=== PATIENT | female | born 1935 | race Caucasian/White ===

== ENCOUNTER 2017-07-17 14:09 | Emergency (ER) | payer MEDICARE, BC ==
[2017-07-17 16:52] VITALS: BP 143/75
--- NOTE | 2017-07-17 17:18 | UC ---
Respiratory Complaint HPI - HPI Summary HPI Summary: 82 yo female with 1 1/2 day hx of cough no f/c fatigue no cp or sob no n/v/d being rxed fro bronchitis - History of Current Complaint Chief Complaint: UCRespiratory Stated Complaint: COUGH Hx Obtained From: Patient Onset/Duration: Gradual Onset, Lasting Days Timing: Constant Severity Initially: Moderate Severity Currently: Moderate Pain Intensity: 0 Pain Scale Used: 0-10 Numeric Character: Cough: Nonproductive Aggravating Factors: Nothing Alleviating Factors: Nothing Associated Signs And Symptoms: Positive: Negative - Allergies/Home Medications Allergies/Adverse Reactions: Allergies Allergy/AdvReac Type Severity Reaction Status Date / Time No Known Allergies Allergy Verified 07/17/17 16:52 Home Medications: Home Medications Furosemide TAB* [Lasix TAB*] 20 mg PO DAILY 07/17/17 [History Confirmed 07/17/17 ] Simvastatin [Zocor 5 MG-] 5 mg PO DAILY 07/17/17 [History Confirmed 07/17/17] dilTIAZem HCl [Diltiazem HCl ER] 300 mg PO 07/17/17 [History] PMH/Surg Hx/FS Hx/Imm Hx Previously Healthy: Yes Endocrine History: Dyslipidemia Cardiovascular History: Hypertension - Surgical History Surgical History: Yes Surgery Procedure, Year, and Place: pacemaker 04/2014, vein stripping - Family History Known Family History: Positive: Hypertension - Social History Alcohol Use: Occasionally Substance Use Type: None Smoking Status (MU): Never Smoked Tobacco Review of Systems Constitutional: Fatigue Skin: Negative Eyes: Negative ENT: Negative Respiratory: Cough Cardiovascular: Negative Gastrointestinal: Negative Genitourinary: Negative Motor: Negative Neurovascular: Negative Musculoskeletal: Negative Neurological: Negative Psychological: Negative Is Patient Immunocompromised?: No All Other Systems Reviewed And Are Negative: Yes Physical Exam Triage Information Reviewed: Yes Appearance: Well-Appearing, No Pain Distress, Well-Nourished Vital Signs: Initial Vital Signs Temp 98.0 F 07/17/17 16:48 Pulse 87 07/17/17 16:48 Resp 18 07/17/17 16:48 BP 143/75 07/17/17 16:48 Pulse Ox 96 07/17/17 16:48 Vital Signs Reviewed: Yes Eyes: Positive: Conjunctiva Clear ENT: Positive: Hearing grossly normal, Uvula midline. Negative: Nasal congestion, Nasal drainage, Trismus, Hoarse voice, Dental tenderness, Sinus tenderness Neck: Positive: Supple, Nontender, No Lymphadenopathy Respiratory: Positive: Lungs clear, Normal breath sounds, No respiratory distress, No accessory muscle use Cardiovascular: Positive: RRR, No Murmur Musculoskeletal: Positive: ROM Intact, No Edema Neurological: Positive: Alert Psychological Exam: Normal Skin Exam: Normal UC Diagnostic Evaluation - Laboratory Pertinent Lab Values Are: WNL - flu (-) O2 Sat by Pulse Oximetry: 96 - normal/not hypoxic Respiratory Course/Dx - Differential Dx/Diagnosis Provider Diagnoses: acute bronchitis Discharge - Discharge Plan Condition: Stable Disposition: HOME Prescriptions: Amoxicillin PO (*) [Amoxicillin 875 MG (*)] 875 mg PO BID #20 tab Patient Education Materials: Acute Bronchitis (ED) Referrals: Neetu Marie PA [Primary Care Provider] - 3 Days (if not better) Additional Instructions: rest recheck for worsening symptoms
== END 2017-07-17 17:48 | disposition home or self-care (01) ==
LOC: UCCORT 14:09
DX: J20.9 Acute bronchitis, unspecified (principal)
CPT/HCPCS: 87502; 99211; G0463

== ENCOUNTER 2018-02-06 10:56 | Emergency (ER) | payer MEDICARE, BC ==
--- OUTSIDE RECORDS SUMMARY | 2018-02-06 12:20 | XMS REPORT ---
:1935 External Reference #:[id number] Author Organization [facility] Address [address], [address] [place] [address] Phone [phone] Care Team Providers Name Role Phone Marley Mccarthy, RN, MSN, FOOT ORTHOPEDIST-C Care Team Information Fire Medic Unavailable Kayla Marie RPAC Primary Care Physician Unavailable Payers Type Date Identification Numbers Payment Provider Subscriber Medicare Primary Effective: Policy Number: Medicare Emma Flores 2000 [id number] PayID: [id number] [address] [place] [address] [facility] Policy Number: [id number] [facility] Emma Flores PayID: [id number] [address] [place] [address] Problems Date Description Provider Status Onset: 03/31/2014 Benign essential hypertension Howard Espinoza M.D., [facility]IN [facility] Active Onset: 05/16/2014 Cardiac pacemaker in situ Ellie Betancourt MD Active Note: 04/2014 Onset: 05/16/2014 Paroxysmal supraventricular Ellie Betancourt MD Active tachycardia Onset: 03/27/2015 Paroxysmal atrial fibrillation Ellie Betancourt MD Active Onset: 05/30/2014 Gastroesophageal reflux disease Active Onset: 07/06/2014 Degenerative joint disease involving ALEKSEY Haile Active multiple joints Note: lumbar, hips Onset: 06/30/2014 Synovial cyst of popliteal space ALEKSEY Haile Active Note: left Onset: 03/27/2014 Hiatal hernia ALEKSEY Haile Active Onset: 03/27/2014 Osteopenia ALEKSEY Haile Active Note: hips Onset: 12/23/2012 Esophagitis Kayla Marie, [facility] Active Onset: 09/30/2011 Varicose veins of lower extremity Kayla Marie, [facility] Active Note: L>R Onset: 06/18/2011 Anxiety state Kayla Marie, [facility] Active Onset: 06/18/2011 Hyperlipidemia Kayla Marie, [facility] Active Onset: 10/05/2014 Degeneration of lumbar intervertebral Kayla Marie, [facility] Active disc Note: L3 thru S1 Onset: 10/09/2014 Pruritic rash Kayla Marie, [facility] Active Note: (L) foot due to venous insufficiency Onset: 03/27/2015 Atrioventricular block, second degree Ellie Betancourt MD Active Onset: 03/30/2015 Deep venous thrombosis of lower Kayla Marie, [facility] Active extremity Note: right, 11/2014 Onset: 04/18/2016 Dyspnea Ellie Betancourt MD Active Onset: 10/05/2017 Obstructive sleep apnea syndrome Kayla Marie, [facility] Active Note: tx 2017 Onset: 03/27/2015 Anticoagulant Ellie Betancourt MD Inactive Inactive: 10/21/2017 Onset: 03/31/2014 Atrioventricular block Howard Espinoza M.D., FACC Resolved Resolved: 07/12/2015 Onset: Near syncope Resolved Resolved: 07/12/2015 Onset: Syncope Resolved Resolved: 07/12/2015 Onset: Chest pain Resolved Resolved: 07/12/2015 Onset: 05/16/2014 C/O - a back symptom Ellie Betancourt MD Resolved Resolved: 07/12/2015 Onset: 05/30/2014 Pneumonia Resolved Resolved: 07/12/2015 Onset: 03/27/2015 Eruption Ellie Betancourt MD Resolved Resolved: 07/12/2015 Onset: 07/28/2017 Cough Talia Velez M.D. Resolved Resolved: 10/21/2017 Onset: 07/28/2017 Acute upper respiratory infection, Talia Velez M.D. Resolved unspecified Resolved: 10/21/2017 Onset: 05/29/2016 Anemia Kayla Cleveland, [facility] Resolved Resolved: 10/26/2017 Note: noted 05/2016 Family History Date Family Member(s) Problem(s) Comments General Non Contributory : (age 59 Father due to [place] Years) Father CAD sudden @ 59 : (age 84 Mother due to [place] Years) Causes Mother Hypertension Mother Diabetes First Brother Cancer First Brother metastatic Social History Type Date Description Comments Marital Status Lives With Home Environment Lives With Diet Patient follows no dietary restrictions Occupation Retired Work Status Part-Time ADL's/IADL's Independent with all ADL's Cigarette Use Never Smoked Cigarettes ETOH Use Occasionally consumes alcohol Smoking Patient has never smoked Recreational Drug Use Denies Drug Use Daily Caffeine Patient consumes minimal amounts of caffeine Exercise Type/Frequency Exercises rarely Allergies, Adverse Reactions, Alerts Date Description Reaction Status Severity Comments 07/11/2014 Diclofenac Nausea and Vomiting active 06/19/2016 Augmentin diarrhea/Cdiff active 10/22/2017 Buspirone increased anxiety active 03/31/2014 NKDA inactive Medications Medication Date Status Form Strength Qnty SIG Indications Ordering Provider Paroxetine HCL 10/22 Active Tablets 10mg 90tabs take one F41.9 tablet by [place], mouth M.D. every morning Latanoprost 05/20 Active Solution 0.005% 2.5unit 1 drop H40.053 s each eye Germán, at night Simvastatin 01/22 Active Tablets 5mg 90tabs take 1 tablet by [place], mouth once M.D. daily [facility] Vitamin D3 Active Capsules 3000Unit Take 3,000 Unknown /0000 Units by mouth daily Aspirin Adult Active Tablets 325mg 1 by mouth Unknown /0000 DR every day Omeprazole Active Capsules 20mg 180caps 1 by mouth [place] / DR twice a MD Serafin day Potassium Active Capsules 10Meq 180caps 2 by mouth [place] Chloride ER /0000 ER every day MD Serafin [place] Q Plus Active 2 caps by Unknown Resueritrol /0000 mouth daily Multivitamin Active Tablets once daily Unknown Adults /0000 Lasix Active Tablets 20mg 180tabs 1-2 tabs Jose by mouth [place], every day M.D. Diltiazem CD Active Caps ER 240mg 1 by mouth Unknown /0000 24HR every day In Am Diltiazem HCL ER 08/14 Hx Caps ER 240mg 90caps 1 tab po [place] 24HR daily at MD Serafin bedtime Macrobid 06/22 Hx Capsules 100mg 20caps 1 by mouth twice a [place], - day for 10 M.D. Azithromycin 03/10 Hx Tablets 250mg 11tabs 2 tabs by mouth [place], - today then M.D. 04/10 one tab by mouth daily Cephalexin 02/16 Hx Tablets 500mg 30tabs 1 tab (or J06.9 cap) by [place], - mouth M.D. 04/10 times a day Dicyclomine HCL 12/18 Hx Capsules 10mg 30caps take one R10.84 capsule by [place], mouth M.D. every 6 hours as needed for abdominal pain / spasm Oxycodone HCL 10/22 Hx Tablets 5mg 28tabs 1 tab by mouth [place], every 6 M.D. hours as needed severe pain Nabumetone 10/15 Hx Tablets 500mg 30tabs 1 tab by M76.32 mouth [place], twice a M.D. day as needed with food for pain Azithromycin 10/09 Hx Tablets 250mg 6tabs 2 tabs by J06.9 mouth [place], - today then M.D. 10/14 one tab by mouth daily Golytely 06/03 Hx Solution 236gm 4000ml drink half D64.9 Rec the Lopez araiza MD before and half the morning of the procedure (1 cup every 10') Citroma 06/03 Hx Solution 1.745GM/3 296ml drink 1 D64.9 0ML bottle at Lopez oliver MD (noon)the day before the procedure Dulcolax 06/03 Hx Tablets 5mg 4tabs [address] clare Marroquin 8pm MD [place] day before the procedure Proair Respiclick 05/28 Hx Aerosol 108(90Bas sample 1-2 J15.8 Martinez E. /2015 e) inhalation Román DO mcg/Act s every 4 hours as needed Amoxicillin/Potas 05/26 Hx Tablets 500-125 take 1 Unknown sium Clavulanate /2015 tablet - every 12 / hours for /2017 10 days Cephalexin 05/14 Hx Capsules 500mg 30caps 1 cap ( or S81.802A Martinez Turcios tab) by Román MARS mouth three times a day Tessalon 05/14 Hx Capsules 200mg 30caps 1 cap by R05 Martinez Turcios mouth Román MARS three times a day for cough Supple For Health 05/04 Hx [facility] Turcios [facility] Román MARS Prazosin HCL 04/04 Hx Capsules 1mg 30caps 1 cap by Martinez Turcios mouth Román DO - every 04/12 night before bedtime for leg discomfort Betamethasone 03/01 Hx Cream 0.05% 45gm thin layer Martinez Turcios Dipropionate for itchy Román MARS rash twice a day Ultracet 01/23 Hx Tablets 37.5-325m 60tabs 1-2 tabs 724.5 Martinez Turcios g by mouth Román MARS every 6 hours as needed back pain Desloratadine 11/27 Hx Tablets 5mg 30tabs 1 tab by 477.0 Martinez Turcios mouth Román MARS every day as needed congestion Hydrochlorothiazi 10/30 Hx Tablets 12.5mg 90tabs 1 cap by Glenys miranda mouth Mezu, every day M.D. as needed lower ext edema Gabapentin 08/24 Hx Capsules 100mg 180caps 1-2 caps Martinez Turcios Reyes by vicky France DO every night at bedtime for leg discomfort Buspirone HCL 08/10 Hx Tablets 5mg 90tabs 1-2 tab by Salazar vicky Aguilar bid-tid MD for anxiety as needed Ibuprofen 07/17 Hx Tablets 800mg 90tabs one tab by Salazar mouth Lauren - every 8 , MD 10/05 hours needed with food for pain Acetadryl 06/08 Hx Tablets 25-500mg as needed Salazar Reyes Ramos MD 10/05 Moxifloxacin HCL 06/01 Hx Tablets 400mg 5tabs Take 1 tablet - (400 mg 10/05 total) by mouth daily for 5 days Guaifenesin ER 05/31 Hx Tablets 600mg 20tabs Take 1 ER 12HR tablet - (600 mg 10/05 total) mouth 2 (two) times a day for 10 days Micardis HCT 05/17 Hx Tablets 40/12.5 90tabs take 1 tablet by Lauren foster , daily Telmisartan 05/16 Hx Tablets 40mg 90tabs 1 tab po daily MD Serafin - 06/01 Bystolic 05/16 Hx Tablets 2.5mg 90tabs 1 by mouth every day MD Serafin Physical Therapy 05/16 Hx Back giselle Betancourt MD - ing 10/05 Indomethacin 04/13 Hx Capsules 50mg 30caps 1 tab by mouth MD Serafin - daily. can 05/16 up to three times daily as needed for pain Protonix 04/12 Hx Tablets 40mg 30tabs [address] terry Betancourt MD Xanax 04/10 Hx Tablets 0.25mg 12tabs take 1 tab p.o. up to MD Serafin - three 10/05 daily as needed for anxiety Levofloxacin 04/10 Hx Tablets 500mg Every 24 Hours - 10/05 Acetaminophen 04/10 Hx Tablets 325mg Every 4 Hours - 06/01 Keflex 04/09 Hx Capsules 500mg 15caps 1 tab by mouth MD Serafin - three 05/16 daily for 5 days Tylenol With 04/09 Hx Tablets 300-30mg 12tabs 1 tab by [place] Codeine #3 mouth MD Serafin - every 6 05/16 hours needed for severe pain Hydrocortisone 05/13 Hx Ointment 0.2% 45units thin layer [facility] /2012 to foot Lauren young MD Micardis 00 Hx Tablets 40mg 90tabs 1 by mouth Unknown /0000 every day Bystolic 00 Hx Tablets 10mg 90tabs 1 by mouth Unknown /0000 every day Buspirone HCL 00 Hx Tablets 5mg 90tabs 5 mg tab Unknown /0000 by mouth - prn 06/01 Telmisartan/Yeoman Hx Tablets 40-12.5mg Unknown chlorothiazide /0000 - 05/16 Omeprazole Hx Tablets 20mg 30tabs 1 po bid Unknown / DR - 05/16 Simvastatin Hx Tablets 10mg 90Tabs 1 by mouth Unknown /0000 every day - 01/22 Flaxseed Oil Hx Capsules 1000mg by mouth Unknown /0000 every day - 10/05 Vitamin D Hx Tablets 1000Unit 1 by mouth Unknown /0000 every day Calcium 600 Hx Tablets 500mg 1 by mouth Unknown /0000 qd B-12 Hx Tablets 1000mcg by mouth Unknown /0000 Sub every day Multi-Vitamin Hx Tablets 1 by mouth Unknown /0000 every day Ferrous Sulfate Hx Tablets 325(65Fe) Once Daily Unknown /0000 mg Hydrochlorothiazi Hx Capsules 12.5mg Once Daily Unknown de /0000 prn Edema - 05/16 Aspirin Ec Hx Tablets 325mg Take 325 Unknown /0000 DR mg by - mouth 10/05 night Indomethacin Hx Capsules 50mg Take 50 mg Unknown /0000 by mouth daily as needed (inflammat ion) Bystolic Hx Tablets 2.5mg Take 2.5 Unknown /0000 mg by mouth nightly Omeprazole Hx Capsules 20mg Take 20 mg Unknown /0000 DR by mouth 2 (two) times a day Metoprolol Hx Tablets 25mg 60tabs 1 by mouth [place] Tartrate /0000 twice a MD Serafin - day 03/27 Oxycodone-Acetami Hx Tablets 5-325mg 1-2 by Unknown nophen /0000 mouth - every 4 01/28 hours needed for pain Xarelto Hx Tablets 20mg 90tabs 1 by mouth [place] /0000 every day MD Serafin - 04/30 Micardis Hx Tablets 40mg 1 by mouth Unknown / every day - 03/01 Fish Oil Hx Capsules 500mg 1 by mouth Unknown /0000 every day Vsusw-1-Jtnl Hx Capsules 2gm 1 tabs by Unknown Ethyl Esters /0000 mouth twice a day Diltiazem HCL ER Hx Caps ER 300mg 90caps 1 by mouth Howard Gregorio Beads / 24HR every day Alexis Ramos M.D., 08/14 [facility] Benzonatate Hx Capsules 200mg one tablet Unknown /0000 by mouth - every 8 /23 hours needed cough Ventolin HFA 00 Hx Aerosol 108(90Bas 1-2 puffs Unknown /0000 e) every 4-6 mcg/Act hours as needed Iron 00 Hx Tablets 325(65Fe) 1 by mouth Unknown /0000 mg every day, - 07/2016 to twice a week Cranberry Hx Capsules 200mg 1 capsule Unknown /0000 three times a day Immunizations CPT Code Status Date Vaccine Reaction Lot # 60229 Given 03/25/2017 Pneumovax Injection received at /PW 68229 Given 02/09/2017 Influenza Virus Vaccine received at [facility]/PW Quadrivalent Iiv4 Split Preser Free Id Q2038 Given 02/22/2016 Influenza Vaccine (Fluzone) Age 3 And Older 54714 Given 02/22/2016 Pneumococcal Conjugate Vaccine 13 Valent For Intramuscular Use Q2038 Given 03/06/2015 Influenza Vaccine (Fluzone) Age 3 And Older 28799 Given 02/22/2014 flu vaccination 88166 Given 03/29/2013 flu vaccination 88691 Given 07/07/2012 Zoster Vaccine Live Injection 66982 Given 04/07/2012 Pneumovax Injection 51065 Given 04/07/2012 Tdap injection 07385 Given 03/05/2012 flu vaccination 58811 Given 03/20/2011 flu vaccination 74663 Given 03/20/2011 flu vaccination 11675 Given 03/20/2011 flu vaccination 76126 Given 03/25/2010 flu vaccination 06645 Given 05/02/2008 flu vaccination 25979 Given 04/27/2007 flu vaccination 25566 Given 04/06/2006 Pneumovax Injection 70470 Given 04/06/2006 flu vaccination 17793 Given 06/20/2005 flu vaccination Vital Signs Date Vital Result Comment 01/18/2018 BP Systolic Sitting Left Arm 134 mmHg BP Diastolic Sitting Left Arm 82 mmHg Heart Rate 85 /min Respiratory Rate 15 /min Height 58.5 inches 4'10.50" Weight 160.00 lb BMI (Body Mass Index) 32.9 kg/m2 BSA (Body Surface Area) 1.67 m2 [place] body weight in kilograms 45 O2 % BldC Oximetry 97 % 10/22/2017 BP Systolic Sitting Right Arm 142 mmHg BP Diastolic Sitting Right Arm 80 mmHg Body Temperature 98.0 F Heart Rate 75 /min reg Respiratory Rate 18 /min Height 58.5 inches 4'10.50" Weight 157.00 lb BMI (Body Mass Index) 32.3 kg/m2 BSA (Body Surface Area) 1.65 m2 [place] body weight in kilograms 45 O2 % BldC Oximetry 98 % ra 09/09/2017 BP Systolic Sitting Left Arm 120 mmHg BP Diastolic Sitting Left Arm 84 mmHg Heart Rate 94 /min Respiratory Rate 18 /min Height 58.5 inches 4'10.50" Weight 156.00 lb BMI (Body Mass Index) 32.0 kg/m2 BSA (Body Surface Area) 1.65 m2 [place] body weight in kilograms 45 O2 % BldC Oximetry 97 % 08/14/2017 BP Systolic Sitting Left Arm 120 mmHg BP Diastolic Sitting Left Arm 82 mmHg Heart Rate 84 /min Respiratory Rate 16 /min Height 58.5 inches 4'10.50" Weight 158.00 lb BMI (Body Mass Index) 32.5 kg/m2 BSA (Body Surface Area) 1.66 m2 [place] body weight in kilograms 45 07/28/2017 BP Systolic 127 mmHg BP Diastolic 82 mmHg Heart Rate 84 /min Respiratory Rate 14 /min Height 58.5 inches 4'10.50" Weight 154.38 lb BMI (Body Mass Index) 31.7 kg/m2 BSA (Body Surface Area) 1.64 m2 [place] body weight in kilograms 45 O2 % BldC Oximetry 97 % 06/19/2017 BP Systolic Sitting Right Arm 124 mmHg BP Diastolic Sitting Right Arm 66 mmHg Body Temperature 97.5 F Heart Rate 80 /min Respiratory Rate 16 /min Height 58.5 inches 4'10.50" Weight 158.00 lb BMI (Body Mass Index) 32.5 kg/m2 BSA (Body Surface Area) 1.66 m2 [place] body weight in kilograms 45 O2 % BldC Oximetry 96 % 02/16/2017 BP Systolic Sitting Right Arm 130 mmHg BP Diastolic Sitting Right Arm 78 mmHg Body Temperature 99.0 F Heart Rate 67 /min Respiratory Rate 18 /min Height 63 inches 5'3" Weight 158.00 lb BMI (Body Mass Index) 28.0 kg/m2 BSA (Body Surface Area) 1.75 m2 [place] body weight in kilograms 52 O2 % BldC Oximetry 95 % ra 02/03/2017 BP Systolic Sitting Right Arm 128 mmHg BP Diastolic Sitting Right Arm 76 mmHg Heart Rate 80 /min Respiratory Rate 16 /min Height 63 inches 5'3" Weight 162.00 lb BMI (Body Mass Index) 28.7 kg/m2 BSA (Body Surface Area) 1.77 m2 [place] body weight in kilograms 52 12/18/2016 BP Systolic Sitting Right Arm 110 mmHg BP Diastolic Sitting Right Arm 72 mmHg Body Temperature 98.2 F Heart Rate 68 /min Respiratory Rate 24 /min Height 63 inches 5'3" Weight 159.00 lb BMI (Body Mass Index) 28.2 kg/m2 BSA (Body Surface Area) 1.75 m2 [place] body weight in kilograms 52 O2 % BldC Oximetry 95 % ra 11/21/2016 BP Systolic 126 mmHg BP Diastolic 82 mmHg Heart Rate 84 /min 10/15/2016 BP Systolic Sitting Right Arm 146 mmHg BP Diastolic Sitting Right Arm 90 mmHg Height 63.5 inches 5'3.50" Weight 165.38 lb BMI (Body Mass Index) 28.8 kg/m2 BSA (Body Surface Area) 1.79 m2 [place] body weight in kilograms 53 10/09/2016 BP Systolic Sitting Right Arm 122 mmHg BP Diastolic Sitting Right Arm 68 mmHg Body Temperature 97.8 F Heart Rate 84 /min Height 63.5 inches 5'3.50" Weight 167.31 lb BMI (Body Mass Index) 29.2 kg/m2 BSA (Body Surface Area) 1.80 m2 [place] body weight in kilograms 53 O2 % BldC Oximetry 97 % 08/05/2016 BP Systolic Sitting Left Arm 122 mmHg BP Diastolic Sitting Left Arm 68 mmHg Heart Rate 80 /min Respiratory Rate 18 /min Height 63.5 inches 5'3.50" Weight 162.00 lb BMI (Body Mass Index) 28.2 kg/m2 BSA (Body Surface Area) 1.78 m2 06/25/2016 BP Systolic Sitting Right Arm 128 mmHg BP Diastolic Sitting Right Arm 70 mmHg Height 63.5 inches 5'3.50" Weight 160.38 lb BMI (Body Mass Index) 28.0 kg/m2 BSA (Body Surface Area) 1.77 m2 06/03/2016 BP Systolic Sitting Left Arm 122 mmHg BP Diastolic Sitting Left Arm 70 mmHg Heart Rate 83 /min Respiratory Rate 16 /min Height 63.5 inches 5'3.50" Weight 160.00 lb BMI (Body Mass Index) 27.9 kg/m2 BSA (Body Surface Area) 1.77 m2 05/28/2016 BP Systolic Sitting Right Arm 122 mmHg BP Diastolic Sitting Right Arm 68 mmHg Body Temperature 98.0 F Heart Rate 72 /min Height 63.5 inches 5'3.50" Weight 170.50 lb BMI (Body Mass Index) 29.7 kg/m2 BSA (Body Surface Area) 1.82 m2 O2 % BldC Oximetry 94 % 04/18/2016 BP Systolic Sitting Left Arm 134 mmHg BP Diastolic Sitting Left Arm 76 mmHg Heart Rate 78 /min Respiratory Rate 16 /min Height 63.5 inches 5'3.50" Weight 165.00 lb BMI (Body Mass Index) 28.8 kg/m2 BSA (Body Surface Area) 1.79 m2 03/20/2016 BP Systolic Sitting Right Arm 132 mmHg BP Diastolic Sitting Right Arm 72 mmHg Body Temperature 97.4 F Heart Rate 88 /min Height 63.5 inches 5'3.50" Weight 167.25 lb BMI (Body Mass Index) 29.2 kg/m2 BSA (Body Surface Area) 1.80 m2 [place] body weight in kilograms 53 O2 % BldC Oximetry 98 % 02/05/2016 BP Systolic Sitting Resting Right Arm 140 mmHg BP Diastolic Sitting Resting Right Arm 75 mmHg Heart Rate 72 /min Respiratory Rate 16 /min Weight 166.00 lb 10/17/2015 BP Systolic 142 mmHg BP Diastolic 82 mmHg Height 63.5 inches 5'3.50" Weight 170.38 lb BMI (Body Mass Index) 29.7 kg/m2 BSA (Body Surface Area) 1.82 m2 07/23/2015 BP Systolic Sitting Left Arm 130 mmHg BP Diastolic Sitting Left Arm 80 mmHg Heart Rate 86 /min Respiratory Rate 16 /min Height 63.5 inches 5'3.50" Weight 166.00 lb BMI (Body Mass Index) 28.9 kg/m2 BSA (Body Surface Area) 1.80 m2 07/04/2015 BP Systolic Sitting Right Arm 154 mmHg BP Diastolic Sitting Right Arm 84 mmHg Heart Rate 88 /min Respiratory Rate 16 /min Height 63.5 inches 5'3.50" Weight 165.00 lb BMI (Body Mass Index) 28.8 kg/m2 BSA (Body Surface Area) 1.79 m2 05/14/2015 BP Systolic Sitting Left Arm 126 mmHg BP Diastolic Sitting Left Arm 72 mmHg Body Temperature 97.9 F Heart Rate 86 /min Height 63.5 inches 5'3.50" Weight 161.12 lb BMI (Body Mass Index) 28.1 kg/m2 BSA (Body Surface Area) 1.77 m2 O2 % BldC Oximetry 95 % 03/30/2015 BP Systolic 132 mmHg BP Diastolic 80 mmHg Height 63.5 inches 5'3.50" Weight 165.00 lb BMI (Body Mass Index) 28.8 kg/m2 BSA (Body Surface Area) 1.79 m2 03/27/2015 BP Systolic Sitting Right Arm 132 mmHg BP Diastolic Sitting Right Arm 88 mmHg Heart Rate 63 /min Respiratory Rate 16 /min Height 63.5 inches 5'3.50" Weight 164.00 lb BMI (Body Mass Index) 28.6 kg/m2 BSA (Body Surface Area) 1.79 m2 01/23/2015 BP Systolic 118 mmHg BP Diastolic 66 mmHg Height 63.5 inches 5'3.50" Weight 159.00 lb BMI (Body Mass Index) 27.7 kg/m2 BSA (Body Surface Area) 1.76 m2 01/12/2015 BP Systolic Sitting Right Arm 110 mmHg BP Diastolic Sitting Right Arm 72 mmHg Heart Rate 67 /min Respiratory Rate 12 /min Height 63.5 inches 5'3.50" Weight 159.00 lb BMI (Body Mass Index) 27.7 kg/m2 BSA (Body Surface Area) 1.76 m2 11/27/2014 BP Systolic 139 mmHg 128/66 recheck BP Diastolic 91 mmHg 128/66 recheck Body Temperature 97.2 F Heart Rate 78 /min Height 63.5 inches 5'3.50" Weight 169.00 lb BMI (Body Mass Index) 29.5 kg/m2 BSA (Body Surface Area) 1.81 m2 10/05/2014 BP Systolic Sitting Left Arm 120 mmHg BP Diastolic Sitting Left Arm 68 mmHg Height 63.5 inches 5'3.50" Weight 171.00 lb BMI (Body Mass Index) 29.8 kg/m2 BSA (Body Surface Area) 1.82 m2 09/12/2014 BP Systolic Sitting Left Arm 120 mmHg BP Diastolic Sitting Left Arm 74 mmHg Heart Rate 66 /min Respiratory Rate 16 /min Height 63.5 inches 5'3.50" Weight 172.00 lb BMI (Body Mass Index) 30.0 kg/m2 BSA (Body Surface Area) 1.82 m2 08/10/2014 BP Systolic 122 mmHg BP Diastolic 80 mmHg Height 63 inches 5'3" Weight 165.00 lb 07/11/2014 BP Systolic 140 mmHg BP Diastolic 84 mmHg Heart Rate 88 /min Height 63 inches 5'3" Weight 169.00 lb 06/30/2014 BP Systolic 120 mmHg BP Diastolic 80 mmHg Body Temperature 98.5 F Heart Rate 84 /min Height 63 inches 5'3" Weight 168.00 lb 06/08/2014 BP Systolic 112 mmHg BP Diastolic 64 mmHg Height 63 inches 5'3" Weight 164.00 lb 06/08/2014 O2 % BldC Oximetry 96 % 06/01/2014 BP Systolic 101 mmHg BP Diastolic 68 mmHg Body Temperature 97.9 F Heart Rate 79 /min Respiratory Rate 18 /min O2 % BldC Oximetry 93 % 05/30/2014 Height 62.99 inches 5'2.99" Weight 164.75 lb BMI (Body Mass Index) 29.2 kg/m2 05/16/2014 BP Systolic Sitting Right Arm 110 mmHg BP Diastolic Sitting Right Arm 78 mmHg Heart Rate 84 /min Respiratory Rate 16 /min Height 63 inches 5'3" Weight 163.00 lb BMI (Body Mass Index) 28.9 kg/m2 BSA (Body Surface Area) 1.77 m2 04/19/2014 BP Systolic 110 mmHg BP Diastolic 62 mmHg Height 63 inches 5'3" Weight 163.00 lb 04/07/2014 BP Systolic Sitting Right Arm 122 mmHg BP Diastolic Sitting Right Arm 68 mmHg Heart Rate 72 /min Respiratory Rate 20 /min Height 63 inches 5'3" Weight 169.00 lb BMI (Body Mass Index) 29.9 kg/m2 BSA (Body Surface Area) 1.80 m2 03/31/2014 BP Systolic Sitting Right Arm 122 mmHg BP Diastolic Sitting Right Arm 68 mmHg Heart Rate 60 /min Respiratory Rate 16 /min Height 63 inches 5'3" Weight 170.00 lb BMI (Body Mass Index) 30.1 kg/m2 BSA (Body Surface Area) 1.80 m2 03/27/2014 BP Systolic 118 mmHg BP Diastolic 66 mmHg Height 63 inches 5'3" Weight 172.00 lb 09/01/2013 BP Systolic 130 mmHg BP Diastolic 74 mmHg Height 63 inches 5'3" Weight 179.00 lb 05/13/2013 BP Systolic 134 mmHg BP Diastolic 76 mmHg Height 63 inches 5'3" Weight 179.00 lb 12/15/2012 BP Systolic 122 mmHg BP Diastolic 68 mmHg Height 63 inches 5'3" Weight 178.00 lb 12/15/2012 Body Temperature 98.0 F 11/09/2012 BP Systolic 126 mmHg BP Diastolic 78 mmHg Height 63 inches 5'3" Weight 180.00 lb 08/25/2012 BP Systolic 128 mmHg BP Diastolic 68 mmHg Body Temperature 97.7 F Height 63.6 inches 5'3.60" Weight 180.00 lb 05/11/2012 BP Systolic 132 mmHg BP Diastolic 82 mmHg Height 63.6 inches 5'3.60" Weight 182.00 lb 09/30/2011 BP Systolic 144 mmHg BP Diastolic 86 mmHg Heart Rate 80 /min Respiratory Rate 18 /min Height 63 inches 5'3" Weight 183.00 lb 07/31/2011 BP Systolic 134 mmHg BP Diastolic 76 mmHg Body Temperature 97.5 F Height 62 inches 5'2" Weight 184.00 lb 05/08/2011 BP Systolic 134 mmHg BP Diastolic 76 mmHg Height 62 inches 5'2" Weight 171.00 lb Results Test Date Test Result H/L Range Note TSH Reflex FT4 And/Or 10/22/2017 Thyroid Stim Hormone 3.60 uIU/mL 0.30- 4.20 1 FT3 Reflex add FT3? Y 1 Reflex add FT4? Y 1 Comprehensive Metabolic Panel 10/22/2017 Glucose 84 mg/dL 74-106 1 BUN 17 mg/dL 7-18 1 Creatinine 0.9 mg/dL 0.6-1.3 1 Glom Filtration Rate, Estimate >60 mL/min >60 1 If >60 mL/min >60 1, 2 BUN/Creat 18.8 ratio 1 Sodium 140 mmol/L 136-145 1 Potassium 4.3 mmol/L 3.5-5.1 1 Chloride 105 mmol/L 98-107 1 Carbon Dioxide 26 mmol/L 21-32 1 Anion Gap 9 mEq/L 8-16 1 Calcium 8.9 mg/dL 8.5-10.1 1 Total Protein 7.0 g/dL 6.4-8.2 1 Albumin 3.8 g/dL 3.4-5.0 1 Globulin 3.2 g/dL 1.9-4.3 1 Alb/Glob 1.2 ratio 1 Bilirubin,Total 0.4 mg/dL 0.2-1.0 1 Sgot/Ast 15 U/L 15-37 1 SGPT/Alt 22 U/L 12-78 1 Alkaline Phosphatase 92 U/L 45-117 1 Reflex add FT3? Y 1 Reflex add FT4? Y 1 CBS W/Automated Diff 10/22/2017 White Blood Count 10.4 K/uL 3.1-10.7 1 Red Blood Count 4.61 M/uL 3.90-5.40 1 Hemoglobin 12.0 gm/dL 11.6-15.8 1 Hematocrit 38.2 % 36.0-46.1 1 Mean Cell Volume 82.9 fl 80.9-99.0 1 Mean Corpuscular HGB 26.0 pg 25.9-32.7 1 Mean Corpuscular HGB Conc 31.4 g/dL 30.8-34.3 1 Platelet Count 287 K/uL 155-360 1 Red Cell Distri Width SD 68.3 fl High 3-47 1 Red Cell Distri Width %CV 23.6 % High 11.7-14.4 1 Mean Platelet Volume 11.1 fL 8.9-12.4 1 Neut% 68.4 % 40.4-72.8 1 Lymph % 23.0 % 20.0-42.0 1 [place] % 7.9 % 4.3-13.2 1 Eo% 0.4 % 0.0-6.6 1 Bas% 0.3 % 0.0-1.1 1 Neut# 7.13 K/uL High 1.8-7.0 1 Lymph # 2.39 K/uL 1.0-4.0 1 [place] # 0.82 K/uL 0.3-0.9 1 Eos # 0.04 K/uL 0.0-0.5 1 Baso # 0.03 K/uL 0.0-0.1 1 Vitamin B12 And Folate 10/22/2017 Vitamin B12 553 pg/mL 193-986 1 Folic Acid > 20.0 ng/mL High 3.1-17.5 1 Reflex add FT3? Y 1 Reflex add FT4? Y 1 Laboratory test 10/22/2017 Vitamin D,25-Hydroxy 52.7 ng/mL 30.0-100.0 1 , 3 finding Slide Review 10/22/2017 Slide Review DIFF ORDERED 1 Differential-WBC 10/22/2017 Total Cells Counted 100 #CELLS 1 Confirm Band% 7 % 0-8 1 Neutrophils% 65 % 33-73 1 Lymph% 15 % Low 20-42 1 Atypical Lymph% 2 % 0-7 1 Monocyte% 8 % 0-10 1 Eosinophil% 3 % 0-5 1 Platelet Estimate NORMAL 1 Hypochromia 0-1+ 1 Anisocytosis 1+ 1 Microcytosis 1+ 1 Elliptocytes 0-1+ 1 Rapid Influenza A & B 07/17/2017 Influenza A Molecular NEGATIVE Negative 4 Molecular Influenza B Molecular NEGATIVE Negative Ua RFX Micro & Culture II 07/02/2017 Urine Color YELLOW Yellow 5 Urine Clarity CLEAR Clear 5 Urine Glucose - Dipstick NEGATIVE mg/dL Negative 5 Urine Bilirubin - Dipstick NEGATIVE Negative 5 Urine Ketone NEGATIVE mg/dL Negative 5 Urine Specific Astor <=1.005 Low 1.010-1.030 5 Urine Blood NEGATIVE Negative 5 Urine PH 6.5 6.5-7.5 5 Urine Protein - Dipstick NEGATIVE mg/dL Negative 5 Urine Urobilinogen - Dipstick 0.2 E.U./dL 0.2-1.0 5 Urine Nitrite - Dipstick NEGATIVE Negative 5 Urine Leuk Esterase NEGATIVE Negative 5 Source: URINE, CLEAN CAT <SEE NOTE> 5, 6 Ast-GN67 06/19/2017 Nitrofurantoin <=16 Cefazolin >=64 Ciprofloxacin <=0.25 Ceftazidime <=1 Ceftriaxone <=1 Cefepime <=1 Levofloxacin <=0.12 Imipenem <=0.25 Gentamicin <=1 Tobramycin <=1 Urine Culture 06/19/2017 Urine Culture CITROBACTER FREU <SEE NOTE> 7 Quantity > 100,000 CFU/mL 8 Laboratory test finding 05/26/2017 CK 47 U/L 26-192 9 NT-proBNP 269.0 pg/mL <450 9 Troponin-I < 0.015 ng/mL 9, 10 CBS W/Automated Diff 05/26/2017 White Blood Count 10.4 K/uL 3.1-10.7 9 Red Blood Count 4.50 M/uL 3.90-5.40 9 Hemoglobin 11.7 gm/dL 11.6-15.8 9 Hematocrit 36.2 % 36.0-46.1 9 Mean Cell Volume 80.4 fl Low 80.9-99.0 9 Mean Corpuscular HGB 26.0 pg 25.9-32.7 9 Mean Corpuscular HGB Conc 32.3 g/dL 30.8-34.3 9 Platelet Count 295 K/uL 155-360 9 Red Cell Distri Width SD 53.0 fl High 3-47 9 Red Cell Distri Width %CV 18.5 % High 11.7-14.4 9 Mean Platelet Volume 9.2 fL 8.9-12.4 9 Neut% 79.4 % High 40.4-72.8 9 Lymph % 15.0 % Low 20.0-42.0 9 [place] % 5.1 % 4.3-13.2 9 Eo% 0.2 % 0.0-6.6 9 Bas% 0.3 % 0.0-1.1 9 Neut# 8.25 K/uL High 1.8-7.0 9 Lymph # 1.56 K/uL 1.0-4.0 9 Whatcom # 0.53 K/uL 0.3-0.9 9 Eos # 0.02 K/uL 0.0-0.5 9 Baso # 0.03 K/uL 0.0-0.1 9 RBC Morphology Only 05/26/2017 Polychromasia 0-1+ 9 Hypochromia 0-1+ 9 Poikilocytosis 1+ 9 Anisocytosis 1+ 9 Microcytosis 1+ 9 Macrocytosis 0-1+ 9 Target Cells 0-1+ 9 Elliptocytes 0-1+ 9 Laboratory test finding 05/26/2017 D-Dimer, Quantitative 0.45 ug/mL 9, 11 Comprehensive Metabolic 05/26/2017 Glucose 130 mg/dL High 74-106 9 Panel BUN 21 mg/dL High 7-18 9 Creatinine 0.9 mg/dL 0.6-1.3 9 Glom Filtration Rate, Estimate >60 mL/min >60 9 If >60 mL/min >60 9, 12 BUN/Creat 23.3 ratio 9 Sodium 137 mmol/L 136-145 9 Potassium 4.1 mmol/L 3.5-5.1 9 Chloride 103 mmol/L 98-107 9 Carbon Dioxide 26 mmol/L 21-32 9 Anion Gap 8 mEq/L 8-16 9 Calcium 8.5 mg/dL 8.5-10.1 9 Total Protein 7.0 g/dL 6.4-8.2 9 Albumin 3.5 g/dL 3.4-5.0 9 Globulin 3.5 g/dL 1.9-4.3 9 Alb/Glob 1.0 ratio 9 Bilirubin,Total 0.3 mg/dL 0.2-1.0 9 Sgot/Ast 15 U/L 15-37 9 SGPT/Alt 22 U/L 12-78 9 Alkaline Phosphatase 89 U/L 45-117 9 Escherichia Coli 05/26/2017 Nitrofurantoin <=16 9 Trimethoprim/Sulfamethoxazole <=20 9 Ampicillin <=2 9 Cefazolin <=4 9 Ampicillin/Sulbactam <=2 9 Ciprofloxacin <=0.25 9 Piperacillin/Tazobactam <=4 9 Ceftazidime <=1 9 Ceftriaxone <=1 9 Cefepime <=1 9 Levofloxacin <=0.12 9 Imipenem <=0.25 9 Gentamicin <=1 9 Tobramycin <=1 9 Urine Culture 05/26/2017 Urine Culture ESCHERICHIA COLI 9, 13 Quantity > 100,000 CFU/mL 9, 14 Urine Culture URETHRAL GEORGE 9 Quantity 50,000 - 100,000 <SEE NOTE> 9, 15 Culture If Indicated 05/26/2017 Culture If Indicated CULTURE TO FOLLO 9 , 16 Comment Comment <SEE NOTE> Source: URINE, CLEAN CAT <SEE NOTE> 9, 17 Ua RFX Micro & Culture II 05/26/2017 Urine Color YELLOW Yellow 9 Urine Clarity CLEAR Clear 9 Urine Glucose - Dipstick NEGATIVE mg/dL Negative 9 Urine Bilirubin - Dipstick NEGATIVE Negative 9 Urine Ketone NEGATIVE mg/dL Negative 9 Urine Specific Astor 1.010 1.010-1.030 9 Urine Blood NEGATIVE Negative 9 Urine PH 7.0 6.5-7.5 9 Urine Protein - Dipstick NEGATIVE mg/dL Negative 9 Urine Urobilinogen - Dipstick 0.2 E.U./dL 0.2-1.0 9 Urine Nitrite - Dipstick POSITIVE Negative 9 Urine Leuk Esterase NEGATIVE Negative 9 Urine RBC 2-5 rbc/hpf 0-2 9 Urine WBC 0-2 wbc/hpf 0-7 9 Urine Epithelial Cells VERY FEW /lpf None Seen 9 Urine Bacteria MANY None Seen 9 Source: URINE, CLEAN CAT <SEE NOTE> 9, 18 Xray 05/26/2017 Chest, 2 Views <pending> LDL Cholesterol Profile 08/15/2016 Cholesterol 192 mg/dL <200 19, 20 Triglycerides 104 mg/dL <150 19, 21 HDL Cholesterol 82 mg/dL >40 19, 22 LDL-Cholesterol 89 mg/dL < 100 19, 23 Basic Metabolic Panel 08/15/2016 Glucose 107 mg/dL High 74-106 19 BUN 15 mg/dL 7-18 19 Creatinine 1.0 mg/dL 0.6-1.3 19 Glom Filtration Rate, Estimate 57 mL/min >60 19 If >60 mL/min >60 19, 24 BUN/Creat 15.0 ratio 19 Sodium 143 mmol/L 136-145 19 Potassium 4.7 mmol/L 3.5-5.1 19 Chloride 107 mmol/L 98-107 19 Carbon Dioxide 29 mmol/L 21-32 19 Anion Gap 7 mEq/L Low 8-16 19 Calcium 8.7 mg/dL 8.5-10.1 19 Laboratory test finding 08/15/2016 Magnesium 2.4 mg/dL 1.8-2.4 19 CBS W/Automated Diff 07/24/2016 White Blood Count 7.6 K/uL 3.1-10.7 25 Red Blood Count 4.38 M/uL 3.90-5.40 25 Hemoglobin 11.8 gm/dL 11.6-15.8 25 Hematocrit 37.5 % 36.0-46.1 25 Mean Cell Volume 85.6 fl 80.9-99.0 25 Mean Corpuscular HGB 26.9 pg 25.9-32.7 25 Mean Corpuscular HGB Conc 31.5 g/dL 30.8-34.3 25 Platelet Count 316 K/uL 150-400 25 Red Cell Distri Width SD 73.3 fl High 3-47 25 Red Cell Distri Width %CV 24.9 % High 11.7-14.4 25 Mean Platelet Volume 10.9 fL 8.9-12.4 25 Neut% 53.5 % 40.4-72.8 25 Lymph % 34.2 % 20.0-42.0 25 [place] % 10.1 % 4.3-13.2 25 Eo% 1.8 % 0.0-6.6 25 Bas% 0.4 % 0.0-1.1 25 Neut# 4.09 K/uL 1.8-7.0 25 Lymph # 2.61 K/uL 1.0-4.0 25 [place] # 0.77 K/uL 0.3-0.9 25 Eos # 0.14 K/uL 0.0-0.5 25 Baso # 0.03 K/uL 0.0-0.1 25 Iron-Tibc-%Sat 07/24/2016 Serum Iron 32 g/dL Low 50-170 25 Total Iron Binding Capacity 373 g/dL 250-450 25 Transferrin %Saturation 9 % Low 12-57 25 Ua RFX Micro & Culture II 06/14/2016 Urine Color YELLOW Yellow 26 Urine Clarity CLEAR Clear 26 Urine Glucose - Dipstick NEGATIVE mg/dL Negative 26 Urine Bilirubin - Dipstick NEGATIVE Negative 26 Urine Ketone NEGATIVE mg/dL Negative 26 Urine Specific Astor <=1.005 Low 1.010-1.030 26 Urine Blood NEGATIVE Negative 26 Urine PH 6.0 Low 6.5-7.5 26 Urine Protein - Dipstick NEGATIVE mg/dL Negative 26 Urine Urobilinogen - Dipstick 0.2 E.U./dL 0.2-1.0 26 Urine Nitrite - Dipstick NEGATIVE Negative 26 Urine Leuk Esterase NEGATIVE Negative 26 Source: URINE, CLEAN CAT <SEE NOTE> 26, 27 Laboratory test finding 06/14/2016 Urine Bilirubin Negative Negative Urine Ketones Negative Negative Urine Leukocyte Esterase Negative Negative Urine Nitrite Negative Negative Urine Protein Negative Negative Urine Urobilinogen 0.2 0.2-1.0 Urine Glucose (Ua) 06/14/2016 Urine Glucose (Ua) Negative Negative CBS W/Automated Diff 06/14/2016 White Blood Count 9.9 K/uL 3.1-10.7 26 Red Blood Count 4.58 M/uL 3.90-5.40 26 Hemoglobin 11.1 gm/dL Low 11.6-15.8 26 Hematocrit 36.0 % 36.0-46.1 26 Mean Cell Volume 78.6 fl Low 80.9-99.0 26 Mean Corpuscular HGB 24.2 pg Low 25.9-32.7 26 Mean Corpuscular HGB Conc 30.8 g/dL 30.8-34.3 26 Platelet Count 300 K/uL 155-360 26 Red Cell Distri Width SD 59.4 fl High 3-47 26 Red Cell Distri Width %CV 21.5 % High 11.7-14.4 26 Mean Platelet Volume 9.5 fL 8.9-12.4 26 Neut% 70.6 % 40.4-72.8 26 Lymph % 21.7 % 20.0-42.0 26 [place] % 6.9 % 4.3-13.2 26 Eo% 0.6 % 0.0-6.6 26 Bas% 0.2 % 0.0-1.1 26 Neut# 6.98 K/uL 1.8-7.0 26 Lymph # 2.14 K/uL 1.0-4.0 26 Whatcom # 0.68 K/uL 0.3-0.9 26 Eos # 0.06 K/uL 0.0-0.5 26 Baso # 0.02 K/uL 0.0-0.1 26 Comprehensive Metabolic Panel 06/14/2016 Glucose 112 mg/dL High 74-106 26 BUN 12 mg/dL 7-18 26 Creatinine 0.9 mg/dL 0.6-1.3 26 Glom Filtration Rate, Estimate >60 mL/min >60 26 If >60 mL/min >60 26, 28 BUN/Creat 13.3 ratio 26 Sodium 140 mmol/L 136-145 26 Potassium 3.6 mmol/L 3.5-5.1 26 Chloride 107 mmol/L 98-107 26 Carbon Dioxide 24 mmol/L 21-32 26 Anion Gap 9 mEq/L 8-16 26 Calcium 8.8 mg/dL 8.5-10.1 26 Total Protein 7.3 g/dL 6.4-8.2 26 Albumin 3.6 g/dL 3.4-5.0 26 Globulin 3.7 g/dL 1.9-4.3 26 Alb/Glob 1.0 ratio 26 Bilirubin,Total 0.5 mg/dL 0.2-1.0 26 Sgot/Ast 10 U/L Low 15-37 26, 29 SGPT/Alt 21 U/L 12-78 26 Alkaline Phosphatase 98 U/L 45-117 26 Laboratory test finding 06/14/2016 Lipase 122 U/L 73-393 26 Laboratory test finding 06/14/2016 Alanine Aminotransferase 21 12-78 (Alt/SGPT) Albumin/Globulin Ratio 1.0 BUN/Creatinine Ratio 13.3 Basophils # (Auto) 0.02 0.0-0.1 Basophils (%) (Auto) 0.2 0.0-1.1 Blood Urea Nitrogen 12 7-18 Calcium Level 8.8 8.5-10.1 Carbon Dioxide Level 24 21-32 Chloride Level 107 98-107 Eosinophils # (Auto) 0.06 0.0-0.5 Eosinophils (%) (Auto) 0.6 0.0-6.6 Glucose Screen 112 High 74-106 Lymphocytes (%) (Auto) 21.7 20.0-42.0 Mean Corpuscular Hemoglobin 24.2 Low 25.9-32.7 Mean Corpuscular Hemoglobin Concent 30.8 30.8-34.3 Mean Corpuscular Volume 78.6 Low 80.9-99.0 Monocytes # (Auto) 0.68 0.3-0.9 Monocytes (%) (Auto) 6.9 4.3-13.2 Neutrophils (%) (Auto) 70.6 40.4-72.8 Potassium Level 3.6 3.5-5.1 RDW Coefficient of Variation 21.5 High 11.7-14.4 Red Cell Distribution Width 59.4 High 3-47 Sodium Level 140 136-145 Total Bilirubin 0.5 0.2-1.0 Aspartate Amino Transf 06/14/2016 Aspartate Amino Transf 10 Low 15-37 (Ast/Sgot) (Ast/Sgot) Lymphocytes # (Auto) 06/14/2016 Lymphocytes # (Auto) 2.14 1.0-4.0 Neutrophils # (Auto) 06/14/2016 Neutrophils # (Auto) 6.98 1.8-7.0 CBS W/Automated Diff 05/28/2016 White Blood Count 8.5 K/uL 3.1-10.7 30 Red Blood Count 4.31 M/uL 3.90-5.40 30 Hemoglobin 10.1 gm/dL Low 11.6-15.8 30 Hematocrit 33.3 % Low 36.0-46.1 30 Mean Cell Volume 77.3 fl Low 80.9-99.0 30 Mean Corpuscular HGB 23.4 pg Low 25.9-32.7 30 Mean Corpuscular HGB Conc 30.3 g/dL Low 30.8-34.3 30 Platelet Count 353 K/uL 155-360 30 Red Cell Distri Width SD 46.6 fl 3-47 30 Red Cell Distri Width %CV 17.1 % High 11.7-14.4 30 Mean Platelet Volume 11.1 fL 8.9-12.4 30, 31 Neut# 4.53 K/uL 1.8-7.0 30 Lymph # 3.08 K/uL 1.8-7.0 30 Whatcom # 0.71 K/uL 0.3-0.9 30 Eos # 0.12 K/uL 0.0-0.5 30 Baso # 0.03 K/uL 0.0-0.1 30 Iron-Tibc-%Sat 05/28/2016 Serum Iron 39 g/dL Low 50-170 30 Total Iron Binding Capacity 446 g/dL 250-450 30 Transferrin %Saturation 9 % Low 12-57 30 Vitamin B12 And Folate 05/28/2016 Vitamin B12 2140 pg/mL High 193-986 30 , 32 Folic Acid 23.8 ng/mL High 3.1-17.5 30, 33 Laboratory test finding 05/28/2016 Slide Review DIFF ORDERED 30 Differential-WBC Confirm 05/28/2016 Total Cells Counted 100 #CELLS 30 Band% 4 % 0-8 30 Neutrophils% 49 % 33-73 30 Lymph% 40 % 17-56 30 Atypical Lymph% 1 % 0-7 30 Monocyte% 3 % 0-10 30 Eosinophil% 3 % 0-5 30 Platelet Estimate NORMAL 30 Polychromasia 1+ 30 Hypochromia 1+ 30 Anisocytosis 1+ 30 Microcytosis 1+ 30 Ovalocytes 1+ 30 Elliptocytes 1+ 30 Acanthocytes 0-1+ 30 Laboratory test finding 05/28/2016 Band Neutrophils % 4 0-8 Iron Level 39 Low 50-170 Neutrophils % 49 33-73 Polychromasia 1+ Anisocytosis 05/28/2016 Anisocytosis 1+ Vitamin B12 Level 05/28/2016 Vitamin B12 Level 2140 High 193-986 Transferrin % 05/28/2016 Transferrin % Saturation 9 Low 12-57 Saturation Total Iron Binding 05/28/2016 Total Iron Binding 446 250-450 Capacity Capacity Platelet Estimate 05/28/2016 Platelet Estimate Normal Ovalocytes 05/28/2016 Ovalocytes 1+ Monocytes % 05/28/2016 Monocytes % 3 0-10 Microcytosis 05/28/2016 Microcytosis 1+ Manual Slide Review 05/28/2016 Manual Slide Review Diff Ordered (Hematology) (Hematology) Lymphocytes % 05/28/2016 Lymphocytes % 40 17-56 Hypochromasia 05/28/2016 Hypochromasia 1+ Folate 05/28/2016 Folate 23.8 High 3.1-17.5 Eosinophils % 05/28/2016 Eosinophils % 3 0-5 Elliptocytes 05/28/2016 Elliptocytes 1+ Differential Total 05/28/2016 Differential Total Cells 100 Cells Counted Counted Atypical Lymphocytes 05/28/2016 Atypical Lymphocytes % 1 0-7 % Neutrophils # (Auto) 05/26/2016 Neutrophils # (Auto) 4.27 1.8-7.0 Lymphocytes # (Auto) 05/26/2016 Lymphocytes # (Auto) 2.14 1.8-7.0 Aspartate Amino 05/26/2016 Aspartate Amino Transf 12 Low 15-37 Transf (Ast/Sgot) (Ast/Sgot) Laboratory test 05/26/2016 Alanine Aminotransferase 18 12-78 finding (Alt/SGPT) Albumin/Globulin Ratio 0.9 BUN/Creatinine Ratio 13.3 Basophils # (Auto) 0.06 0.0-0.1 Basophils (%) (Auto) 0.8 0.0-1.1 Blood Urea Nitrogen 12 7-18 Calcium Level 8.2 Low 8.5-10.1 Carbon Dioxide Level 25 21-32 Chloride Level 107 98-107 Eosinophils # (Auto) 0.02 0.0-0.5 Eosinophils (%) (Auto) 0.3 0.0-6.6 Glucose Screen 103 74-106 Lymphocytes (%) (Auto) 28.6 17.0-46.1 Mean Corpuscular Hemoglobin 24.0 Low 25.9-32.7 Mean Corpuscular Hemoglobin Concent 31.1 30.8-34.3 Mean Corpuscular Volume 77.1 Low 80.9-99.0 Monocytes # (Auto) 1.00 High 0.3-0.9 Monocytes (%) (Auto) 13.4 High 4.3-13.2 Neutrophils (%) (Auto) 56.9 40.4-72.8 Potassium Level 3.8 3.5-5.1 RDW Coefficient of Variation 16.6 High 11.7-14.4 Red Cell Distribution Width 44.9 3-47 Sodium Level 141 136-145 Total Bilirubin 0.3 0.2-1.0 Laboratory test finding 05/26/2016 Troponin-I < 0.015 ng/mL 34, 35 Comprehensive Metabolic Panel 05/26/2016 Glucose 103 mg/dL 74-106 34 BUN 12 mg/dL 7-18 34 Creatinine 0.9 mg/dL 0.6-1.3 34 Glom Filtration Rate, Estimate >60 mL/min >60 34 If >60 mL/min >60 34, 36 BUN/Creat 13.3 ratio 34 Sodium 141 mmol/L 136-145 34 Potassium 3.8 mmol/L 3.5-5.1 34 Chloride 107 mmol/L 98-107 34 Carbon Dioxide 25 mmol/L 21-32 34 Anion Gap 9 mEq/L 8-16 34 Calcium 8.2 mg/dL Low 8.5-10.1 34 Total Protein 6.6 g/dL 6.4-8.2 34 Albumin 3.2 g/dL Low 3.4-5.0 34 Globulin 3.4 g/dL 1.9-4.3 34 Alb/Glob 0.9 ratio 34 Bilirubin,Total 0.3 mg/dL 0.2-1.0 34 Sgot/Ast 12 U/L Low 15-37 34, 37 SGPT/Alt 18 U/L 12-78 34 Alkaline Phosphatase 90 U/L 45-117 34 CBS W/Automated Diff 05/26/2016 White Blood Count 7.5 K/uL 3.1-10.7 34 Red Blood Count 3.88 M/uL Low 3.90-5.40 34 Hemoglobin 9.3 gm/dL Low 11.6-15.8 34 Hematocrit 29.9 % Low 36.0-46.1 34 Mean Cell Volume 77.1 fl Low 80.9-99.0 34 Mean Corpuscular HGB 24.0 pg Low 25.9-32.7 34 Mean Corpuscular HGB Conc 31.1 g/dL 30.8-34.3 34 Platelet Count 319 K/uL 155-360 34 Red Cell Distri Width SD 44.9 fl 3-47 34 Red Cell Distri Width %CV 16.6 % High 11.7-14.4 34 Mean Platelet Volume 9.9 fL 8.9-12.4 34 Neut% 56.9 % 40.4-72.8 34 Lymph % 28.6 % 17.0-46.1 34 [place] % 13.4 % High 4.3-13.2 34 Eo% 0.3 % 0.0-6.6 34 Bas% 0.8 % 0.0-1.1 34 Neut# 4.27 K/uL 1.8-7.0 34 Lymph # 2.14 K/uL 1.8-7.0 34 [place] # 1.00 K/uL High 0.3-0.9 34 Eos # 0.02 K/uL 0.0-0.5 34 Baso # 0.06 K/uL 0.0-0.1 34 Order 04/18/2016 Echocardiogram <pending> Lipid Panel 10/23/2015 Cholesterol 180 mg/dL <200 38 Triglycerides 119 mg/dL <150 39 HDL Cholesterol 66 mg/dL >40 40 LDL-Cholesterol 90 mg/dL < 100 41 CBC W/Diff & PLT 10/23/2015 White Blood Count 8.8 K/uL 3.1-10.7 Red Blood Count 3.92 M/uL 3.90-5.40 Hemoglobin 12.5 gm/dL 11.6-15.8 Hematocrit 37.0 % 36.0-46.1 Mean Cell Volume 94.4 fl 80.9-99.0 Mean Corpuscular HGB 31.9 pg 25.9-32.7 Mean Corpuscular HGB Conc 33.8 g/dL 30.8-34.3 Platelet Count 276 K/uL 155-360 Red Cell Distri Width SD 47.2 fl High 3-47 Red Cell Distri Width %CV 14.1 % 11.7-14.4 Mean Platelet Volume 10.4 fL 8.9-12.4 Neut% 65.3 % 40.4-72.8 Lymph % 26.0 % 17.0-46.1 [place] % 7.2 % 4.3-13.2 Eo% 1.2 % 0.0-6.6 Bas% 0.3 % 0.0-1.1 Neut# 5.75 K/uL 1.8-7.0 Lymph # 2.30 K/uL 1.8-7.0 Whatcom # 0.64 K/uL 0.3-0.9 Eos # 0.11 K/uL 0.0-0.5 Baso # 0.03 K/uL 0.0-0.1 CMP Panel (14 Test) 10/23/2015 Glucose 128 mg/dL High 74-106 BUN 20 mg/dL High 7-18 Creatinine 1.0 mg/dL 0.6-1.3 Glom Filtration Rate, Estimate 57 mL/min >60 If >60 mL/min >60 42 BUN/Creat 20.0 ratio Sodium 142 mmol/L 136-145 Potassium 3.9 mmol/L 3.5-5.1 Chloride 104 mmol/L 98-107 Carbon Dioxide 31 mmol/L 21-32 Anion Gap 7 mEq/L Low 8-16 Calcium 8.8 mg/dL 8.5-10.1 Total Protein 7.0 g/dL 6.4-8.2 Albumin 3.6 g/dL 3.4-5.0 Globulin 3.4 g/dL 1.9-4.3 Alb/Glob 1.1 ratio Bilirubin,Total 0.3 mg/dL 0.2-1.0 Sgot/Ast 22 U/L 15-37 SGPT/Alt 33 U/L 12-78 Alkaline Phosphatase 95 U/L 45-117 Glycohemoglobin A1c 05/29/2015 Glycohemoglobin (A1c) 5.9 % 4.2-6.3 43 eAG 123 mg/dL Routine Culture W/ Gram Stain 05/14/2015 Gram Stain See Note 44 Aerobic Culture See Note 45 CBC W/Automated Diff 04/03/2015 White Blood Count 7.5 K/uL 3.1-10.7 Red Blood Count 4.07 M/uL 3.90-5.40 Hemoglobin 13.0 gm/dL 11.6-15.8 Hematocrit 39.3 % 36.0-46.1 Mean Cell Volume 96.6 fl 80.9-99.0 Mean Corpuscular HGB 31.9 pg 25.9-32.7 Mean Corpuscular HGB Conc 33.1 g/dL 30.8-34.3 Platelet Count 286 K/uL 155-360 Red Cell Distri Width SD 54.6 fl High 3-47 Red Cell Distri Width %CV 15.7 % High 11.7-14.4 Mean Platelet Volume 10.1 fL 8.9-12.4 Neut% 60.0 % 40.4-72.8 Lymph % 28.8 % 17.0-46.1 [place]com % 9.3 % 4.3-13.2 Eo% 1.5 % 0.0-6.6 Bas% 0.4 % 0.0-1.1 Neut# 4.50 K/uL 1.0-7.0 Lymph # 2.16 K/uL 1.8-7.0 Whatcom # 0.70 K/uL 0.3-0.9 Eos # 0.11 K/uL 0.0-0.5 Baso # 0.03 K/uL 0.0-0.1 Comprehensive Metabolic Panel 04/03/2015 Glucose 130 mg/dL High 74-106 BUN 15 mg/dL 7-18 Creatinine 1.0 mg/dL 0.6-1.3 Glom Filtration Rate, Estimate 57 mL/min >60 If >60 mL/min >60 46 BUN/Creat 15.0 ratio Sodium 138 mmol/L 136-145 Potassium 4.3 mmol/L 3.5-5.1 Chloride 105 mmol/L 98-107 Carbon Dioxide 25 mmol/L 21-32 Anion Gap 8 mEq/L 8-16 Calcium 9.3 mg/dL 8.5-10.1 Total Protein 7.5 g/dL 6.4-8.2 Albumin 3.9 g/dL 3.4-5.0 Globulin 3.6 g/dL 1.9-4.3 Alb/Glob 1.1 ratio Bilirubin,Total 0.3 mg/dL 0.2-1.0 Sgot/Ast 17 U/L 15-37 SGPT/Alt 27 U/L 12-78 Alkaline Phosphatase 96 U/L 45-117 Laboratory test finding 11/29/2014 Troponin-I < 0.015 ng/mL 47 Protime 11/29/2014 Protime 13.7 seconds 12.0-14.4 Inr 1.0 0.9-1.1 48 Laboratory test finding 11/29/2014 Act Partial 34.3 seconds 23.4-35.0 49 Thrombo Time Laboratory test finding 11/29/2014 Troponin-I < 0.015 ng/mL 50 Comprehensive Metabolic 11/28/2014 Glucose 117 mg/dL High 74-106 Panel BUN 12 mg/dL 7-18 Creatinine 1.0 mg/dL 0.6-1.3 Glom Filtration Rate, Estimate 57 mL/min >60 If >60 mL/min >60 51 BUN/Creat 12.0 ratio Sodium 134 mmol/L Low 136-145 Potassium 3.4 mmol/L Low 3.5-5.1 Chloride 97 mmol/L Low 98-107 Carbon Dioxide 24 mmol/L 21-32 Anion Gap 13 mEq/L 8-16 Calcium 8.8 mg/dL 8.5-10.1 Total Protein 7.0 g/dL 6.4-8.2 Albumin 3.5 g/dL 3.4-5.0 Globulin 3.5 g/dL 1.9-4.3 Alb/Glob 1.0 ratio Bilirubin,Total 0.2 mg/dL 0.2-1.0 Sgot/Ast 18 U/L 15-37 SGPT/Alt 28 U/L 12-78 Alkaline Phosphatase 92 U/L 45-117 Laboratory test finding 11/28/2014 D-Dimer, Quantitative 0.33 ug/mL 52 Laboratory test finding 11/28/2014 CK 50 U/L 26-192 Troponin-I < 0.015 ng/mL 53 CBC W/Automated Diff 11/28/2014 White Blood Count 10.3 K/uL 3.1-10.7 Red Blood Count 4.06 M/uL 3.90-5.40 Hemoglobin 13.5 gm/dL 11.6-15.8 Hematocrit 39.0 % 36.0-46.1 Mean Cell Volume 96.1 fl 80.9-99.0 Mean Corpuscular HGB 33.3 pg High 25.9-32.7 Mean Corpuscular HGB Conc 34.6 g/dL High 30.8-34.3 Platelet Count 258 K/uL 155-360 Red Cell Distri Width SD 45.3 fl 3-47 Red Cell Distri Width %CV 13.3 % 11.7-14.4 Mean Platelet Volume 9.4 fL 8.9-12.4 Neut% 62.6 % 40.4-72.8 Lymph % 29.6 % 17.0-46.1 [place] % 6.5 % 4.3-13.2 Eo% 1.1 % 0.0-6.6 Bas% 0.2 % 0.0-1.1 Neut# 6.44 K/uL 1.0-7.0 Lymph # 3.05 K/uL 1.8-7.0 Whatcom # 0.67 K/uL 0.3-0.9 Eos # 0.11 K/uL 0.0-0.5 Baso # 0.02 K/uL 0.0-0.1 Laboratory test finding 07/12/2014 Free T4 0.94 ng/dL 0.76-1.46 Thyroid Stim Hormone 2.72 uIU/mL 0.36-3.74 CBC W/Automated Diff 07/12/2014 Baso # 0.02 K/uL 0.0-0.1 Eos # 0.63 K/uL High 0.0-0.5 Hematocrit 42.2 % 36.0-46.1 Hemoglobin 13.8 gm/dL 11.6-15.8 Lymph # 2.35 K/uL 0.8-3.4 Mean Cell Volume 94.2 fl 80.9-99.0 Mean Corpuscular HGB 30.8 pg 25.9-32.7 Mean Corpuscular HGB Conc 32.7 g/dL 30.8-34.3 Mean Platelet Volume 10.9 fL 8.9-12.4 [place] # 0.71 K/uL 0.3-0.9 Neut# 4.69 K/uL 1.0-7.0 Platelet Count 171 K/uL 155-360 Red Blood Count 4.48 M/uL 3.90-5.40 Red Cell Distri Width %CV 14.8 % High 11.7-14.4 Red Cell Distri Width SD 49.6 fl High 3-47 White Blood Count 8.4 K/uL 3.1-10.7 Differential-WBC Confirm 07/12/2014 Band% 2 % 0-8 Lymph% 33 % 17-56 Monocyte% 6 % 0-10 Neutrophils% 59 % 33-73 Platelet Estimate Normal RBC Morphology Normal Total Cells Counted 100 #CELLS Laboratory test finding 07/11/2014 Cytology Pap See Note 54 CBC - Daily 06/01/2014 Hematocrit 36.0 % 36.0-47.0 Hemoglobin 12.0 g/dL 12.0-16.0 MCH 30.8 pg 27.0-32.0 MCHC 33.2 g/dL 32.0-36.0 MCV 92.6 fL 80.0-95.0 MPV 8.1 fL 7.1-10.7 Platelets 241 10*3/uL 150-450 RBC 3.89 10*6/uL Low 4.00-5.40 RDW 13.2 % 10.5-14.5 WBC 6.3 10*3/uL 4.1-11.0 BMP - Daily 06/01/2014 Anion Gap 9 mmol/L 7-16 BUN/Creatinine Ratio 10.9 Ratio 10.0-20.0 Calcium 9.0 mg/dL 8.4-10.2 Chloride 107 mmol/L 100-108 Co2 26 mmol/L 22-31 Creatinine 1.1 mg/dL High 0.6-1.0 GFR MDRD Af Amer 62 ml/min/1.73m2 >59 GFR MDRD Non Af Amer 51 ml/min/1.73m2 Low >59 Glom Filt Rate, Est See Notes Glucose 91 mg/dL 70-99 Potassium 4.2 mmol/L 3.6-5.2 Sodium 142 mmol/L 136-145 Urea nitrogen 12 mg/dL 7-24 D-dimer, quantitative 05/31/2014 D-dimer, sensitive 1730 ng/mL High <350 Uric acid 05/31/2014 Uric Acid 3.2 mg/dL 2.6-6.0 Troponin I 05/31/2014 Troponin I <0.06 0.00-0.10 ng/mL Poct troponin 05/30/2014 Poc Troponin I 0.00 1 Aptt 05/29/2014 aPTT 24.9 s 22.0-32.6 B-type natriuretic 05/29/2014 B natriuretic 56 pg/mL 0-100 peptide peptide CBC and differential 05/29/2014 Basophils Absolute 0.1 10*3/uL 0.0-0.2 Basophils Relative 0.8 % 0.0-4.0 Eosinophils Absolute 0.1 10*3/uL 0.0-0.5 Eosinophils Relative 1.4 % 0.0-5.0 Hematocrit 38.2 % 36.0-47.0 Hemoglobin 12.5 g/dL 12.0-16.0 Lymphocytes Absolute 2.9 10*3/uL 1.2-4.8 Lymphocytes Relative 33.6 % 16.0-52.0 MCH 30.7 pg 27.0-32.0 MCHC 32.6 g/dL 32.0-36.0 MCV 94.2 fL 80.0-95.0 MPV 7.7 fL 7.1-10.7 Monocytes Absolute 0.7 10*3/uL 0.0-0.8 Monocytes Relative 8.1 % High 0.0-8.0 Neutrophils % 56.1 % 35.0-75.0 Neutrophils Absolute 4.9 10*3/uL 1.8-7.7 Platelets 237 10*3/uL 150-450 RBC 4.06 10*6/uL 4.00-5.40 RDW 13.3 % 10.5-14.5 WBC 8.7 10*3/uL 4.1-11.0 Comprehensive metabolic panel 05/29/2014 Alb/Glob ratio 0.9 Ratio Albumin 3.4 g/dL 3.2-4.5 Alkaline Phosphatase 108 U/L 45-117 Alt 19 U/L 12-78 Anion Gap 6 mmol/L Low 7-16 Ast 18 U/L 11-39 BUN/Creatinine Ratio 11.0 Ratio 10.0-20.0 Bilirubin, Total 0.4 mg/dL 0.0-1.0 Calcium 9.2 mg/dL 8.4-10.2 Chloride 106 mmol/L 100-108 Co2 27 mmol/L 22-31 Creatinine 1.0 mg/dL 0.6-1.0 GFR MDRD Af Amer 69 ml/min/1.73m2 >59 GFR MDRD Non Af Amer 57 ml/min/1.73m2 Low >59 Globulin 3.8 g/dL 2.7-4.3 Glom Filt Rate, Est See Notes Glucose 108 mg/dL High 70-99 Potassium 3.9 mmol/L 3.6-5.2 Protein, Total 7.2 g/dL 6.4-8.2 Sodium 139 mmol/L 136-145 Urea nitrogen 11 mg/dL 7-24 Magnesium 05/29/2014 Magnesium 2.1 mg/dL 1.7-2.4 Protime-Inr 05/29/2014 Inr 1.00 1 Protime 10.2 s 9.2-11.9 Laboratory test finding 05/28/2014 B Type Natriuretic Peptide 96 pg/mL 55 CBC Auto Diff 05/28/2014 Abs Basophils 0.1 10^3/uL 0-0.2 Abs Eosinophils 0.1 10^3/uL 0-0.6 Abs Lymphocytes 2.6 10^3/uL 1.0-4.8 Abs Monocytes 0.6 10^3/uL 0-0.8 Abs Neutrophils 5.0 10^3/uL 1.5-7.7 Abs Nucleated RBC 0.01 10^3/uL Basophil % 0.7 % 0-2 Eosinophil % 0.8 % 0-6 Granulocyte % 59.5 % 38-83 Hematocrit 38 % 35-47 Hemoglobin 12.5 g/dL 12.0-16.0 Lymphocyte % 31.5 % 25-47 Mean Corpuscular HGB Conc 33 g/dL 31-36 Mean Corpuscular Hemoglobin 32 pg High 27-31 Mean Corpuscular Volume 95 fL 80-97 Mean Platelet Volume 8 um3 7.4-10.4 Monocyte % 7.5 % 1-9 Nucleated Red Blood Cells % 0.1 Platelet Count 251 10^3/uL 150-450 Red Blood Count 3.95 10^6/uL Low 4.0-5.4 Red Cell Distribution Width 13 % 10.5-15 White Blood Count 8.3 10^3/uL 4.8-10.8 Comp Metabolic Panel 05/28/2014 Albumin 3.9 g/dL 3.2-5.2 Albumin/Globulin Ratio 1.4 1-3 Alkaline Phosphatase 81 U/L 34-104 Alt 10 U/L 7-52 Anion Gap 8 mmol/L 2-11 Ast 11 U/L Low 13-39 BUN/Creatinine Ratio 11.5 8-20 Blood Urea Nitrogen 11 mg/dL 6-24 Calcium 9.2 mg/dL 8.6-10.3 Chloride 104 mmol/L 101-111 Co2 Carbon Dioxide 26 mmol/L 22-32 Creatinine 0.96 mg/dL High 0.51-0.95 Egfr 72.3 >60 56 Egfr Non- 56.2 >60 Globulin 2.7 g/dL 2-4 Glucose 102 mg/dL High 70-100 Potassium 4.1 mmol/L 3.5-5.0 Sodium 138 mmol/L 133-145 Total Bilirubin 0.40 mg/dL 0.2-1.0 Total Protein 6.6 g/dL 6.4-8.9 Comprehensive Metabolic Panel 04/12/2014 Alb/Glob 0.8 ratio Albumin 2.8 g/dL Low 3.4-5.0 Alkaline Phosphatase 75 U/L 45-117 Anion Gap 11 mEq/L 8-16 BUN 18 mg/dL 7-18 BUN/Creat 16.3 ratio Bilirubin,Total 0.6 mg/dL 0.2-1.0 Calcium 8.8 mg/dL 8.5-10.1 Carbon Dioxide 29 mmol/L 21-32 Chloride 99 mmol/L 98-107 Creatinine 1.1 mg/dL 0.6-1.3 Globulin 3.3 g/dL 1.9-4.3 Glom Filtration Rate, Estimate 51 mL/min >60 Glucose 110 mg/dL High 74-106 If >60 mL/min >60 57 Potassium 3.5 mmol/L 3.5-5.1 SGPT/Alt 9 U/L Low 12-78 58 Sgot/Ast 10 U/L Low 15-37 59 Sodium 135 mmol/L Low 136-145 Total Protein 6.1 g/dL Low 6.4-8.2 Laboratory test finding 04/12/2014 Laboratory Results 16.3 - CBC 04/12/2014 Hematocrit 33.6 % Low 36.0-46.1 Hemoglobin 11.4 gm/dL Low 11.6-15.8 Mean Cell Volume 96.8 fl 80.9-99.0 Mean Corpuscular HGB 32.9 pg High 25.9-32.7 Mean Corpuscular HGB Conc 33.9 g/dL 30.8-34.3 Mean Platelet Volume 9.9 fL 8.9-12.4 Platelet Count 192 K/uL 155-360 Red Blood Count 3.47 M/uL Low 3.90-5.40 Red Cell Distri Width %CV 12.2 % 11.7-14.4 White Blood Count 9.0 K/uL 3.1-10.7 Laboratory test finding 04/11/2014 CK 48 U/L 26-192 Troponin-I 0.03 ng/mL 60 Laboratory test finding 04/11/2014 CK 42 U/L 26-192 Troponin-I 0.04 ng/mL 61 Laboratory test finding 04/11/2014 Laboratory Results 182 mg/dL < 200 - LDL Cholesterol Profile 04/11/2014 Cholesterol 182 mg/dL < 200 62 HDL Cholesterol 55 mg/dL > 40 63 LDL-Cholesterol 108 mg/dL < 100 64 Triglycerides 95 mg/dL < 150 65 Laboratory test finding 04/10/2014 Bas% 0.2 % 0.0-1.1 Baso # 0.02 K/uL 0.0-0.1 CK 54 U/L 26-192 Eo% 0.4 % 0.0-6.6 Eos # 0.04 K/uL 0.0-0.5 Hematocrit 39.6 % 36.0-46.1 Hemoglobin 13.1 gm/dL 11.6-15.8 Lymph # 1.62 K/uL 0.8-3.4 Lymph % 14.5 % Low 17.0-46.1 Mean Cell Volume 95.4 fl 80.9-99.0 Mean Corpuscular HGB 31.6 pg 25.9-32.7 Mean Corpuscular HGB Conc 33.1 g/dL 30.8-34.3 Mean Platelet Volume 9.8 fL 8.9-12.4 Whatcom # 0.87 K/uL 0.3-0.9 Whatcom % 7.8 % 4.3-13.2 Neut# 8.65 K/uL High 1.0-7.0 Neut% 77.1 % High 40.4-72.8 Platelet Count 246 K/uL 155-360 Red Blood Count 4.15 M/uL 3.90-5.40 Red Cell Distri Width %CV 12.5 % 11.7-14.4 Red Cell Distri Width SD 42.8 fl 3-47 Troponin-I 0.02 ng/mL 66 White Blood Count 11.2 K/uL High 3.1-10.7 Comprehensive Metabolic Panel 04/10/2014 Alb/Glob 1.0 ratio Albumin 3.6 g/dL 3.4-5.0 Alkaline Phosphatase 87 U/L 45-117 Anion Gap 9 mEq/L 8-16 BUN 15 mg/dL 7-18 BUN/Creat 15.0 ratio Bilirubin,Total 0.4 mg/dL 0.2-1.0 Calcium 9.3 mg/dL 8.5-10.1 Carbon Dioxide 31 mmol/L 21-32 Chloride 96 mmol/L Low 98-107 Creatinine 1.0 mg/dL 0.6-1.3 Globulin 3.7 g/dL 1.9-4.3 Glom Filtration Rate, Estimate 57 mL/min >60 Glucose 150 mg/dL High 74-106 If >60 mL/min >60 67 Potassium 3.6 mmol/L 3.5-5.1 SGPT/Alt 13 U/L 12-78 Sgot/Ast 11 U/L Low 15-37 68 Sodium 132 mmol/L Low 136-145 Total Protein 7.3 g/dL 6.4-8.2 Laboratory test finding 04/10/2014 Troponin-I 0.03 ng/mL 69 Laboratory test finding 04/10/2014 Laboratory Results 0.02 0.0 - 0.1 Laboratory test finding 04/10/2014 Troponin-I 0.04 ng/mL 70 Laboratory test finding 04/07/2014 Laboratory Results 12.8 12.1 - 14.9 Protime 04/07/2014 Inr 1.0 0.9-1.1 71 Protime 12.8 s 12.1-14.9 Laboratory test finding 04/07/2014 Act Partial Thrombo 22.9 s Low 23.9- 34.3 72 Time Laboratory test finding 04/07/2014 Troponin-I < 0.02 ng/mL 73 CBC 04/07/2014 White Blood Count 7.7 K/uL 3.1-10.7 Red Blood Count 4.07 M/uL 3.90-5.40 Hemoglobin 13.6 gm/dL 11.6-15.8 Hematocrit 39.6 % 36.0-46.1 Mean Cell Volume 97.3 fl 80.9-99.0 Mean Corpuscular HGB 33.4 pg High 25.9-32.7 Mean Corpuscular HGB Conc 34.3 g/dL 30.8-34.3 Platelet Count 307 K/uL 155-360 Red Cell Distri Width %CV 12.4 % 11.7-14.4 Mean Platelet Volume 9.9 fL 8.9-12.4 Comprehensive Metabolic Panel 04/07/2014 Glucose 131 mg/dL High 74-106 BUN 12 mg/dL 7-18 Creatinine 1.1 mg/dL 0.6-1.3 Glom Filtration Rate, Estimate 51 mL/min >60 If >60 mL/min >60 74 BUN/Creat 10.9 ratio Sodium 137 mmol/L 136-145 Potassium 3.9 mmol/L 3.5-5.1 Chloride 100 mmol/L 98-107 Carbon Dioxide 29 mmol/L 21-32 Anion Gap 12 mEq/L 8-16 Calcium 9.0 mg/dL 8.5-10.1 Total Protein 7.2 g/dL 6.4-8.2 Albumin 3.8 g/dL 3.4-5.0 Globulin 3.4 g/dL 1.9-4.3 Alb/Glob 1.1 ratio Bilirubin,Total 0.2 mg/dL 0.2-1.0 Sgot/Ast 14 U/L Low 15-37 75 SGPT/Alt 29 U/L 12-78 Alkaline Phosphatase 84 U/L 45-117 Laboratory test finding 04/07/2014 Troponin-I < 0.02 ng/mL 76 Laboratory test finding 03/29/2014 Troponin-I 0.05 ng/mL 77 Laboratory test finding 03/29/2014 Laboratory Results 2.0 1.8 - 2.4 Laboratory test finding 03/29/2014 Magnesium 2.0 mg/dL 1.8-2.4 Troponin-I 0.04 ng/mL 78 Basic Metabolic Panel 03/29/2014 Anion Gap 13 mEq/L 8-16 BUN 14 mg/dL 7-18 BUN/Creat 14.0 ratio Calcium 9.1 mg/dL 8.5-10.1 Carbon Dioxide 24 mmol/L 21-32 Chloride 105 mmol/L 98-107 Creatinine 1.0 mg/dL 0.6-1.3 Glom Filtration Rate, Estimate 57 mL/min >60 Glucose 99 mg/dL 74-106 If >60 mL/min >60 79 Potassium 4.4 mmol/L 3.5-5.1 Sodium 138 mmol/L 136-145 Laboratory test finding 03/29/2014 Troponin-I 0.05 ng/mL 80 Laboratory test finding 03/28/2014 Troponin-I 0.02 ng/mL 81 Basic Metabolic Panel 03/28/2014 Anion Gap 13 mEq/L 8-16 BUN 14 mg/dL 7-18 BUN/Creat 14.0 ratio Calcium 8.9 mg/dL 8.5-10.1 Carbon Dioxide 26 mmol/L 21-32 Chloride 104 mmol/L 98-107 Creatinine 1.0 mg/dL 0.6-1.3 Glom Filtration Rate, Estimate 57 mL/min >60 Glucose 97 mg/dL 74-106 If >60 mL/min >60 82 Potassium 3.8 mmol/L 3.5-5.1 Sodium 139 mmol/L 136-145 Laboratory test finding 03/28/2014 Bas% 0.4 % 0.0-1.1 Baso # 0.03 K/uL 0.0-0.1 Eo% 1.0 % 0.0-6.6 Eos # 0.07 K/uL 0.0-0.5 Hematocrit 40.0 % 36.0-46.1 Hemoglobin 13.9 gm/dL 11.6-15.8 Lymph # 2.31 K/uL 0.8-3.4 Lymph % 31.7 % 17.0-46.1 Magnesium 1.9 mg/dL 1.8-2.4 Mean Cell Volume 96.4 fl 80.9-99.0 Mean Corpuscular HGB 33.5 pg High 25.9-32.7 Mean Corpuscular HGB Conc 34.8 g/dL High 30.8-34.3 Mean Platelet Volume 9.7 fL 8.9-12.4 Whatcom # 0.75 K/uL 0.3-0.9 Whatcom % 10.3 % 4.3-13.2 Neut# 4.12 K/uL 1.0-7.0 Neut% 56.6 % 40.4-72.8 Phosphorous 4.6 mg/dL High 2.5-4.0 Platelet Count 235 K/uL 155-360 Red Blood Count 4.15 M/uL 3.90-5.40 Red Cell Distri Width %CV 12.9 % 11.7-14.4 Red Cell Distri Width SD 44.1 fl 3-47 Thyroid Stim Hormone 3.88 uIU/mL High 0.36-3.74 Troponin-I 0.02 ng/mL 83 White Blood Count 7.3 K/uL 3.1-10.7 Laboratory test 03/28/2014 Aot Request Test(s) added 84 finding Laboratory test 03/28/2014 Troponin-I 0.02 ng/mL 85 finding Laboratory test 03/28/2014 Laboratory Results 4.6 High 2.5 - 4.0 finding Laboratory test 03/28/2014 Troponin-I 0.02 ng/mL 86 finding Laboratory test 03/27/2014 Troponin-I 0.03 ng/mL 87 finding Laboratory test 03/27/2014 Bas% 0.3 % 0.0-1.1 finding Baso # 0.03 K/uL 0.0-0.1 CK 48 U/L 26-192 Eo% 0.2 % 0.0-6.6 Eos # 0.02 K/uL 0.0-0.5 Hematocrit 41.1 % 36.0-46.1 Hemoglobin 13.9 gm/dL 11.6-15.8 Lymph # 2.64 K/uL 0.8-3.4 Lymph % 26.5 % 17.0-46.1 Mean Cell Volume 95.6 fl 80.9-99.0 Mean Corpuscular HGB 32.3 pg 25.9-32.7 Mean Corpuscular HGB Conc 33.8 g/dL 30.8-34.3 Mean Platelet Volume 9.7 fL 8.9-12.4 Whatcom # 1.12 K/uL High 0.3-0.9 Whatcom % 11.3 % 4.3-13.2 Neut# 6.14 K/uL 1.0-7.0 Neut% 61.7 % 40.4-72.8 Platelet Count 265 K/uL 155-360 Red Blood Count 4.30 M/uL 3.90-5.40 Red Cell Distri Width %CV 12.9 % 11.7-14.4 Red Cell Distri Width SD 44.4 fl 3-47 Troponin-I 0.03 ng/mL 88 White Blood Count 10.0 K/uL 3.1-10.7 Comprehensive Metabolic Panel 03/27/2014 Alb/Glob 1.1 ratio Albumin 3.6 g/dL 3.4-5.0 Alkaline Phosphatase 92 U/L 45-117 Anion Gap 12 mEq/L 8-16 BUN 17 mg/dL 7-18 BUN/Creat 13.0 ratio Bilirubin,Total 0.4 mg/dL 0.2-1.0 Calcium 9.5 mg/dL 8.5-10.1 Carbon Dioxide 26 mmol/L 21-32 Chloride 101 mmol/L 98-107 Creatinine 1.3 mg/dL 0.6-1.3 Globulin 3.4 g/dL 1.9-4.3 Glom Filtration Rate, Estimate 42 mL/min >60 Glucose 109 mg/dL High 74-106 If 51 mL/min >60 89 Potassium 4.3 mmol/L 3.5-5.1 SGPT/Alt 21 U/L 12-78 Sgot/Ast 13 U/L Low 15-37 90 Sodium 135 mmol/L Low 136-145 Total Protein 7.0 g/dL 6.4-8.2 Laboratory test finding 03/27/2014 Laboratory Results 1.3 0.6 - 1.3 Laboratory test finding 05/13/2013 Creatine Kinase 81 U/L 0-200 TSH (Thyroid Stimulating Horm) 3.17 miu/mL 0.34-5.60 CBC Auto Diff 05/13/2013 Abs Basophils 0.1 10^3/uL 0-0.2 Abs Eosinophils 0.1 10^3/uL 0-0.6 Abs Lymphocytes 2.9 10^3/uL 1.0-4.8 Abs Monocytes 0.9 10^3/uL High 0-0.8 Abs Neutrophils 5.8 10^3/uL 1.5-7.7 Abs Nucleated RBC 0.01 10^3/uL Basophil % 1.0 % 0-2 Eosinophil % 0.7 % 0-6 Granulocyte % 59.1 % 38-83 Hematocrit 41 % 35-47 Hemoglobin 14.0 g/dL 12.0-16.0 Lymphocyte % 29.7 % 25-47 Mean Corpuscular HGB Conc 34 g/dL 31-36 Mean Corpuscular Hemoglobin 33 pg High 27-31 Mean Corpuscular Volume 97 fL 80-97 Mean Platelet Volume 9 um3 7.4-10.4 Monocyte % 9.5 % High 1-9 Nucleated Red Blood Cells % 0.1 Platelet Count 259 10^3/uL 150-450 Red Blood Count 4.27 10^6/uL 4.0-5.4 Red Cell Distribution Width 14 % 10.5-15 White Blood Count 9.8 10^3/uL 4.8-10.8 Comp Metabolic Panel 05/13/2013 Albumin 4.3 g/dL 3.2-5.2 Albumin/Globulin Ratio 1.5 1-3 Alkaline Phosphatase 90 U/L 30-110 Alt 22 U/L 14-54 Anion Gap 10.0 mmol/L 2-11 Ast 24 U/L 12-42 BUN/Creatinine Ratio 15.6 8-20 Blood Urea Nitrogen 14 mg/dL 6-24 Calcium 9.6 mg/dL 8.1-9.9 Chloride 99 mmol/L Low 101-111 Co2 Carbon Dioxide 27.0 mmol/L 22-32 Creatinine 0.90 mg/dL 0.50-1.40 Egfr 78.3 >60 91 Egfr Non- 60.9 >60 Globulin 2.9 g/dL 2-4 Glucose 109 mg/dL High 70-100 Potassium 4.4 mmol/L 3.5-5.0 Sodium 136 mmol/L 133-145 Total Bilirubin 0.8 mg/dL 0.4-1.5 Total Protein 7.2 g/dL 6.2-8.1 Lipid Profile (Trig/Chol/HDL) 05/13/2013 Cholesterol 191 mg/dL Less than 200 Cholesterol/HDL Ratio 2.9 Average 1-4.44 HDL Cholesterol 67 mg/dL High 40-60 92 LDL Cholesterol 99.4 Less Than 100 93 Triglycerides 123 mg/dL 40-200 Liver Function Panel 05/13/2013 Direct Bilirubin 0.1 mg/dL 0.1-0.5 Indirect Bilirubin 0.7 mg/dL 0.3-1.0 Laboratory test finding 12/23/2012 Esophageal Biopsy See Note 94 Liver Function Panel 05/11/2012 Direct Bilirubin 0.1 mg/dL 0.1-0.5 Indirect Bilirubin 0.7 mg/dL 0.3-1.0 Lipid Profile (Trig/Chol/HDL) 05/11/2012 Cholesterol 201 mg/dL High Less than 200 Cholesterol/HDL Ratio 3.1 Average 1-4.44 HDL Cholesterol 66 mg/dL High 40-60 95 LDL Cholesterol 104.8 mg/dL High Less Than 100 96 Triglycerides 151 mg/dL 40-200 Comp Metabolic Panel 05/11/2012 Albumin 4.1 g/dL 3.2-5.2 Albumin/Globulin Ratio 1.5 1-3 Alkaline Phosphatase 70 U/L 30-110 Alt 25 U/L 14-54 Anion Gap 7.0 mmol/L 2-11 Ast 25 U/L 12-42 BUN/Creatinine Ratio 12.2 8-20 Blood Urea Nitrogen 11 mg/dL 6-24 Calcium 9.6 mg/dL 8.1-9.9 Chloride 101 mmol/L 101-111 Co2 Carbon Dioxide 26.0 mmol/L 22-32 Creatinine 0.90 mg/dL 0.50-1.40 Egfr 78.5 >60 97 Egfr Non- 61.0 >60 Globulin 2.7 g/dL 2-4 Glucose 101 mg/dL High 70-100 Potassium 4.3 mmol/L 3.5-5.0 Sodium 134 mmol/L 133-145 Total Bilirubin 0.8 mg/dL 0.4-1.5 Total Protein 6.8 g/dL 6.2-8.1 CBC Auto Diff 05/11/2012 Abs Basophils 0.1 10^3/uL 0-0.2 Abs Eosinophils 0 10^3/uL 0-0.6 Abs Lymphocytes 2.5 10^3/uL 1.0-4.8 Abs Monocytes 0.8 10^3/uL 0-0.8 Abs Neutrophils 5.7 10^3/uL 1.5-7.7 Abs Nucleated RBC 0 10^3/uL Basophil % 0.5 % 0-2 Eosinophil % 0.4 % 0-6 Granulocyte % 62.6 % 38-83 Hematocrit 42 % 35-47 Hemoglobin 14.0 g/dL 12.0-16.0 Lymphocyte % 27.6 % 25-47 Mean Corpuscular HGB Conc 34 g/dL 31-36 Mean Corpuscular Hemoglobin 33 pg High 27-31 Mean Corpuscular Volume 98 fL High 80-97 Mean Platelet Volume 8 um3 7.4-10.4 Monocyte % 8.9 % 1-9 Nucleated Red Blood Cells % 0 Platelet Count 234 10^3/uL 150-450 Red Blood Count 4.27 10^6/uL 4.0-5.4 Red Cell Distribution Width 14 % 10.5-15 White Blood Count 9.1 10^3/uL 4.8-10.8 Laboratory test finding 05/11/2012 Creatine Kinase 50 U/L 0-200 TSH (Thyroid Stimulating Horm) 3.23 MIU/ML 0.34-5.60 Laboratory test finding 05/11/2012 Cytology Pap See Note 98 Laboratory test finding 05/08/2011 CPK (Creatine Kinase) 63 U/L 0-170 Erythrocyte Sed Rate 12 MM/HR 0-40 Basic Metabolic Panel 05/08/2011 Anion Gap 11.0 mmol/L 2-11 99 BUN 12 mg/dL 6-24 BUN/Creatinine Ratio 12.0 8-20 Calcium 9.7 mg/dL 8.1-9.9 Chloride 101 mmol/L 101-111 Co2 (Carbon Dioxide) 28.0 mmol/L 22-32 Creatinine 1.0 mg/dL 0.50-1.40 Glucose 104 mg/dL High 70-100 One Over Creatinine 1.00 Potassium 4.8 mmol/L 3.5-5.0 Sodium 140 mmol/L 135-145 eGFR 69.7 > 60 100 eGFR Non- 54.2 > 60 CBC Auto Diff 05/08/2011 Abs Basophils 0.1 0-0.2 Abs Eosinophils 0 0-0.6 Abs Lymphs 2.6 1.0-4.8 Abs Mononuclear 0.5 0-0.8 Absolute Neutrophil Count 5.8 1.5-7.7 Basophil % 0.6 % 0-2 Eosinophil % 0.4 % 0-6 Gran % 64.5 % 38-83 Hematocrit 40 % 35-47 Hemoglobin 13.9 g/dL 12.0-16.0 Lymph % 29.2 % 25-47 Mean Corpuscular HGB Cone 35 g/dL 32-36 Mean Corpuscular Hemoglob 34 pg High 27-31 Mean Corpuscular Volume 98 um3 High 79-97 Mean Platelet Volume 8.6 um3 7.4-10.4 Mononuclear % 5.3 % 1-9 Platelet Count 229 CUMM 150-450 Red Cell Count 4.09 CUMM Low 4.2-5.4 Redcell Distribution WDTH 14 % 10.5-15 White Blood Count 9.0 CUMM 4.8-10.8 Lipid Profile (Trig/Chol/HDL) 05/08/2011 Cholesterol 204 mg/dL High Less Than 200 101 Cholesterol/HDL Ratio 2.96 AVERAGE 1-4.44 High Density Lipoprotein 69 mg/dL High 40-60 102 Low Density Lipoprotein 111 mg/dL High Less Than 100 103 Triglyceride 122 mg/dL 40-200 Liver Function Panel 05/08/2011 Albumin 4.2 GM/DL 3.2-5.2 Albumin/Globulin Ratio 1.8 1-3 Alkaline Phosphatase 77 U/L 30-110 Alt (SGPT) 31 U/L 14-54 Ast (Sgot) 28 U/L 12-42 Bilirubin Direct 0.1 mg/dL 0.1-0.5 Bilirubin Total 0.8 mg/dL 0.4-1.5 104 Globulin 2.4 GM/DL 2-4 Indirect Bilirubin 0.7 mg/dL 0.3-1.0 105 Total Protein 6.6 GM/DL 6.2-8.1 1 F41.9 2 Note: Persistent reduction for 3 months or more in an eGFR <60 mL/min/1.73 m2 defines CKD. Patients with eGFR values >/=60 mL/min/1.73 m2 may also have CKD if evidence of persistent proteinuria is present. The original MDRD equation for estimated GFR is not valid for patients less than 18 years of age. Additional information may be found at www.kdoqi.org. 3 Vitamin D deficiency has been defined by the [place] and an Endocrine Society practice guideline as a level of serum 25-OH vitamin D less than 20 ng/mL (1,2). The Endocrine Society went on to further define vitamin D insufficiency as a level between 21 and 29 ng/mL (2). 1. IOM ([place]). 2010. Dietary reference intakes for calcium and D. [place]: The National Academies Press. 2. Dejan MF, Ciara TEMPLETON, Elisa VICTOR, et al. Evaluation, treatment, and prevention of vitamin D deficiency: an Endocrine Society clinical practice guideline. JCEM. 2010; 96(7):1911-30. Performed at: RN - [facility] [address] [id number] Ware Finisher: Carmel Brady MD, Phone: [phone] 4 A/C Tech: [id number] 5 N39.0 6 URINE, CLEAN CATCH 7 CITROBACTER FREUNDII 8 > 100,000 CFU/mL 9 SOB,DIZZY,NAUSEA 10 0.0 - 0.045 ng/mL: Normal 0.046 - 0.5 ng/mL: Suggestive 0.6 - 1.5 ng/mL: Consistent 11 <=0.49 ug/mL - Low likelihood of DIC, DVT or Pulmonary Embolism >0.49 ug/mL - Additional testing should be done to rule out DIC, DVT, or Pulmonary embolism as clinically indicated. ([facility] has established a 97.89% negative predictive value for thrombotic disease when a cutoff value of 0.5 ug/mL is used.) 12 Note: Persistent reduction for 3 months or more in an eGFR <60 mL/min/1.73 m2 defines CKD. Patients with eGFR values >/=60 mL/min/1.73 m2 may also have CKD if evidence of persistent proteinuria is present. The original MDRD equation for estimated GFR is not valid for patients less than 18 years of age. Additional information may be found at www.[email or web address]. 13 ESCHERICHIA COLI 14 > 100,000 CFU/mL 15 50,000 - 100,000 CFU/mL 16 CULTURE TO FOLLOW 17 URINE, CLEAN CATCH 18 URINE, CLEAN CATCH 19 E78.2 20 Reference Guidelines*: Desirable: ........... < 200 mg/dL Borderline High: ..... 200-239 mg/dL High: ................ >=240 mg/dL * The National Cholesterol Education Program (NCEP) 21 Reference Guidelines*: Normal: ............. < 150 mg/dL Borderline High: .... 150-199 mg/dL High: ............... 200-499 mg/dL Very High: .......... > 500 mg/dL * Source: National Cholesterol Education Program (NCEP) 22 Reference Guidelines*: Low HDL: ..... < 40 mg/dL Normal: ..... 40-60 mg/dL Desirable: ... > 60 mg/dL *The National Cholesterol Education Program(NCEP) 23 Reference Guidelines*: Optimal:........... <100 mg/dL Near Optimal....... 100-129 mg/dL Borderline High.... 130-159 mg/dL High............... 160-189 mg/dL Very High.......... >=190 mg/dL * Source: National Cholesterol Education Program (NCEP) 24 Note: Persistent reduction for 3 months or more in an eGFR <60 mL/min/1.73 m2 defines CKD. Patients with eGFR values >/=60 mL/min/1.73 m2 may also have CKD if evidence of persistent proteinuria is present. The original MDRD equation for estimated GFR is not valid for patients less than 18 years of age. Additional information may be found at www.[email or web address]. 25 D64.9 R19.7 26 DIARRHEA, ABD PAIN 27 URINE, CLEAN CATCH 28 Note: Persistent reduction for 3 months or more in an eGFR <60 mL/min/1.73 m2 defines CKD. Patients with eGFR values >/=60 mL/min/1.73 m2 may also have CKD if evidence of persistent proteinuria is present. The original MDRD equation for estimated GFR is not valid for patients less than 18 years of age. Additional information may be found at www.[email or web address]. 29 Values below the stated reference ranges of AST and ALT can be seen in normal populations. Clinical correlation is suggested. 30 D64.9 31 05/28/161942: NEUT% previously reported as: 53.4 % Amended result called to: [] - 05/28/16 at 1943 05/28/161942: LYMPH % previously reported as: 36.4 % Amended result called to: [] - 05/28/16 at 1943 05/28/161942: MONO % previously reported as: 8.4 % Amended result called to: [] - 05/28/16 at 1943 05/28/161942: EO% previously reported as: 1.4 % Amended result called to: [] - 05/28/16 at 1943 05/28/161942: BAS% previously reported as: 0.4 % Amended result called to: [] - 05/28/16 at 1942 32 Result confirmed by repeat analysis. 33 Result confirmed by repeat analysis. 34 COUGH, CONGESTION X 2 DAYS 35 0.0 - 0.045 ng/mL: Normal 0.046 - 0.5 ng/mL: Suggestive 0.6 - 1.5 ng/mL: Consistent 36 Note: Persistent reduction for 3 months or more in an eGFR <60 mL/min/1.73 m2 defines CKD. Patients with eGFR values >/=60 mL/min/1.73 m2 may also have CKD if evidence of persistent proteinuria is present. The original MDRD equation for estimated GFR is not valid for patients less than 18 years of age. Additional information may be found at www.[email or web address]. 37 Values below the stated reference ranges of AST and ALT can be seen in normal populations. Clinical correlation is suggested. 38 Reference Guidelines*: Desirable: ........... < 200 mg/dL Borderline High: ..... 200-239 mg/dL High: ................ >=240 mg/dL * The National Cholesterol Education Program (NCEP) 39 Reference Guidelines*: Normal: ............. < 150 mg/dL Borderline High: .... 150-199 mg/dL High: ............... 200-499 mg/dL Very High: .......... > 500 mg/dL * Source: National Cholesterol Education Program (NCEP) 40 Reference Guidelines*: Low HDL: ..... < 40 mg/dL Normal: ..... 40-60 mg/dL Desirable: ... > 60 mg/dL *The National Cholesterol Education Program(NCEP) 41 Reference Guidelines*: Optimal:........... <100 mg/dL Near Optimal....... 100-129 mg/dL Borderline High.... 130-159 mg/dL High............... 160-189 mg/dL Very High.......... >=190 mg/dL * Source: National Cholesterol Education Program (NCEP) 42 Note: Persistent reduction for 3 months or more in an eGFR <60 mL/min/1.73 m2 defines CKD. Patients with eGFR values >/=60 mL/min/1.73 m2 may also have CKD if evidence of persistent proteinuria is present. The original MDRD equation for estimated GFR is not valid for patients less than 18 years of age. Additional information may be found at www.[email or web address]. 43 Elevated levels of HbA1c suggest the need for more aggressive treatment of glycemia. The [place] [employer] recommends that a primary goal of therapy should be a HbA1c of <7% and that physicians should re-evaluate the treatment regimen in patients with HbA1c values consistently >8%. 44 GRAM STAIN ! RARE WHITE BLOOD CELLS ! RARE GRAM POSITIVE COCCI 45 Organism 1 ! STAPHYLOCOCCUS AUREUS Quantity ! MANY STAPHYLOCOCCUS AUREUS Target Route Dose M.I.C. RX AB COST ------ ----- -------- ------ -- ------ PENICILLIN G >=0.5 R OXACILLIN <=0.25 S TETRACYCLINE <=1 S TRIMETHOPRIM/SULFAMETHOXAZOLE BLOOD PO DS <=10 S 0.39 AMOXICILLIN R AMOXICILLIN/CLAVULANATE S AMPICILLIN/SULBACTAM S CEFAZOLIN S GENTAMICIN <=0.5 S ERYTHROMYCIN <=0.25 S CLINDAMYCIN BLOOD PO 300 mg <=0.25 S 0.81 IV 600 mg S 3.01 CIPROFLOXACIN <=0.5 S MOXIFLOXACIN <=0.25 S LEVOFLOXACIN <=0.12 S CEFACLOR S AZITHROMYCIN S CEFUROXIME S PIPERACILLIN R CEFTRIAXONE S VANCOMYCIN 1 S 46 Note: Persistent reduction for 3 months or more in an eGFR <60 mL/min/1.73 m2 defines CKD. Patients with eGFR values >/=60 mL/min/1.73 m2 may also have CKD if evidence of persistent proteinuria is present. The original MDRD equation for estimated GFR is not valid for patients less than 18 years of age. Additional information may be found at www.[email or web address]. 47 0.0 - 0.045 ng/mL: Normal 0.046 - 0.5 ng/mL: Suggestive 0.6 - 1.5 ng/mL: Consistent 48 THERAPEUTIC INR RANGE: 2.0 - 3.0 DVT, Pulmonary embolus, prophylaxis against venous thrombosis or systemic embolization in high risk patients. 2.5 - 3.5 Mechanical heart valves 49 Is patient on heparin protocol? N Is patient on anticoagulants? Unknown QUERY: Anticoagulant Therapy? QUERY: Date of Last Dose: QUERY: Time of Last Dose: 50 0.0 - 0.045 ng/mL: Normal 0.046 - 0.5 ng/mL: Suggestive 0.6 - 1.5 ng/mL: Consistent 51 Note: Persistent reduction for 3 months or more in an eGFR <60 mL/min/1.73 m2 defines CKD. Patients with eGFR values >/=60 mL/min/1.73 m2 may also have CKD if evidence of persistent proteinuria is present. The original MDRD equation for estimated GFR is not valid for patients less than 18 years of age. Additional information may be found at www.kdoqi.org. 52 <=0.49 ug/mL - Low likelihood of DIC, DVT or Pulmonary Embolism >0.49 ug/mL - Additional testing should be done to rule out DIC, DVT, or Pulmonary embolism as clinically indicated. ([facility] has established a 97.89% negative predictive value for thrombotic disease when a cutoff value of 0.5 ug/mL is used.) 53 0.0 - 0.045 ng/mL: Normal 0.046 - 0.5 ng/mL: Suggestive 0.6 - 1.5 ng/mL: Consistent 54 Interpretation: NEGATIVE FOR INTRAEPITHELIAL LESION OR MALIGNANCY. Specimen Adequacy: SATISFACTORY FOR EVALUATION. Additional Findings: ENDOCERVICAL/TRANSFORMATION ZONE PRESENT. Cytology Laboratory [address] [facility], [address] [place] [address] CYTOLOGY REPORT Name: Emma Flores : 1935 (Age: 79) Sex: F Location: [facility] Rec. # [id number] Date Collected: 2014 Billing #: [id number] Date Received: 07/11/2014 Requisition # [id number] Physician( s): KAYLA MOISE Source of Specimen: ENDOCERVICAL/ECTOCERVICAL THIN PREP Clinical Information: Date of Last Menstrual Period: 1989 kfs Electronic Signature MICHELLE Martinez ([facility]) Reported: 07/13/2014 [facility] [employer] [facility] ICD-9 Code(s) V76.2 55 >100 to <200 pg/mL: likely compensated congestive heart failure (CHF) 200 to 400 pg/mL: likely moderate CHF >400 pg/mL: likely moderate to severe CHF [place] [facility] 56 Because ethnic data is not always readily available, this report includes an eGFR for both -Americans and non- Americans. The National Kidney Disease Education Program (NKDEP) does not endorse the use of the MDRD equation for patients that are not between the ages of 18 and 70, are , have extremes of body size, muscle mass, or nutritional status, or are non- or non-. According to the National Kidney Foundation, irrespective of diagnosis, the stage of the disease is based on the level of kidney function: Stage Description GFR(mL/min/1.73 m(2)) 1 Kidney damage with normal or decreased GFR 90 2 Kidney damage with mild decrease in GFR 60- 89 3 Moderate decrease in GFR 30-59 4 Severe decrease in GFR 15-29 5 Kidney failure <15 (or dialysis) 57 Note: Persistent reduction for 3 months or more in an eGFR <60 mL/min/1.73 m2 defines CKD. Patients with eGFR values >/=60 mL/min/1.73 m2 may also have CKD if evidence of persistent proteinuria is present. The original MDRD equation for estimated GFR is not valid for patients less than 18 years of age. Additional information may be found at www.kdoqi.org. 58 Values below the stated reference ranges of AST and ALT can be seen in normal populations. Clinical correlation is suggested. 59 Values below the stated reference ranges of AST and ALT can be seen in normal populations. Clinical correlation is suggested. 60 0.0 - 0.045 ng/mL: Normal 0.046 - 0.5 ng/mL: Suggestive 0.6 - 1.5 ng/mL: Consistent 61 0.0 - 0.045 ng/mL: Normal 0.046 - 0.5 ng/mL: Suggestive 0.6 - 1.5 ng/mL: Consistent 62 Reference Guidelines*: Desirable: ........... < 200 mg/dL Borderline High: ..... 200-239 mg/dL High: ................ >=240 mg/dL * The National Cholesterol Education Program (NCEP) 63 Reference Guidelines*: Low HDL: ..... < 40 mg/dL Normal: ..... 40-60 mg/dL Desirable: ... > 60 mg/dL *The National Cholesterol Education Program(NCEP) 64 Reference Guidelines*: Optimal:........... <100 mg/dL Near Optimal....... 100-129 mg/dL Borderline High.... 130-159 mg/dL High............... 160-189 mg/dL Very High.......... >=190 mg/dL * Source: National Cholesterol Education Program (NCEP) 65 Reference Guidelines*: Normal: ............. < 150 mg/dL Borderline High: .... 150-199 mg/dL High: ............... 200-499 mg/dL Very High: .......... > 500 mg/dL * Source: National Cholesterol Education Program (NCEP) 66 0.0 - 0.045 ng/mL: Normal 0.046 - 0.5 ng/mL: Suggestive 0.6 - 1.5 ng/mL: Consistent 67 Note: Persistent reduction for 3 months or more in an eGFR <60 mL/min/1.73 m2 defines CKD. Patients with eGFR values >/=60 mL/min/1.73 m2 may also have CKD if evidence of persistent proteinuria is present. The original MDRD equation for estimated GFR is not valid for patients less than 18 years of age. Additional information may be found at www.kdoqi.org. 68 Values below the stated reference ranges of AST and ALT can be seen in normal populations. Clinical correlation is suggested. 69 0.0 - 0.045 ng/mL: Normal 0.046 - 0.5 ng/mL: Suggestive 0.6 - 1.5 ng/mL: Consistent 70 0.0 - 0.045 ng/mL: Normal 0.046 - 0.5 ng/mL: Suggestive 0.6 - 1.5 ng/mL: Consistent 71 THERAPEUTIC INR RANGE: 2.0 - 3.0 DVT, Pulmonary embolus, prophylaxis against venous thrombosis or systemic embolization in high risk patients. 2.5 - 3.5 Mechanical heart valves 72 Is patient on anticoagulants? None QUERY: Anticoagulant Therapy? QUERY: Date of Last Dose: QUERY: Time of Last Dose: 73 0.0 - 0.045 ng/mL: Normal 0.046 - 0.5 ng/mL: Suggestive 0.6 - 1.5 ng/mL: Consistent 74 Note: Persistent reduction for 3 months or more in an eGFR <60 mL/min/1.73 m2 defines CKD. Patients with eGFR values >/=60 mL/min/1.73 m2 may also have CKD if evidence of persistent proteinuria is present. The original MDRD equation for estimated GFR is not valid for patients less than 18 years of age. Additional information may be found at www.kdoqi.org. 75 Values below the stated reference ranges of AST and ALT can be seen in normal populations. Clinical correlation is suggested. 76 0.0 - 0.045 ng/mL: Normal 0.046 - 0.5 ng/mL: Suggestive 0.6 - 1.5 ng/mL: Consistent 77 0.0 - 0.045 ng/mL: Normal 0.046 - 0.5 ng/mL: Suggestive 0.6 - 1.5 ng/mL: Consistent 78 0.0 - 0.045 ng/mL: Normal 0.046 - 0.5 ng/mL: Suggestive 0.6 - 1.5 ng/mL: Consistent 79 Note: Persistent reduction for 3 months or more in an eGFR <60 mL/min/1.73 m2 defines CKD. Patients with eGFR values >/=60 mL/min/1.73 m2 may also have CKD if evidence of persistent proteinuria is present. The original MDRD equation for estimated GFR is not valid for patients less than 18 years of age. Additional information may be found at www.kdoqi.org. 80 0.0 - 0.045 ng/mL: Normal 0.046 - 0.5 ng/mL: Suggestive 0.6 - 1.5 ng/mL: Consistent 81 0.0 - 0.045 ng/mL: Normal 0.046 - 0.5 ng/mL: Suggestive 0.6 - 1.5 ng/mL: Consistent 82 Note: Persistent reduction for 3 months or more in an eGFR <60 mL/min/1.73 m2 defines CKD. Patients with eGFR values >/=60 mL/min/1.73 m2 may also have CKD if evidence of persistent proteinuria is present. The original MDRD equation for estimated GFR is not valid for patients less than 18 years of age. Additional information may be found at www.kdoqi.org. 83 0.0 - 0.045 ng/mL: Normal 0.046 - 0.5 ng/mL: Suggestive 0.6 - 1.5 ng/mL: Consistent 84 Tests: TSH Instructions: 85 0.0 - 0.045 ng/mL: Normal 0.046 - 0.5 ng/mL: Suggestive 0.6 - 1.5 ng/mL: Consistent 86 0.0 - 0.045 ng/mL: Normal 0.046 - 0.5 ng/mL: Suggestive 0.6 - 1.5 ng/mL: Consistent 87 0.0 - 0.045 ng/mL: Normal 0.046 - 0.5 ng/mL: Suggestive 0.6 - 1.5 ng/mL: Consistent 88 0.0 - 0.045 ng/mL: Normal 0.046 - 0.5 ng/mL: Suggestive 0.6 - 1.5 ng/mL: Consistent 89 Note: Persistent reduction for 3 months or more in an eGFR <60 mL/min/1.73 m2 defines CKD. Patients with eGFR values >/=60 mL/min/1.73 m2 may also have CKD if evidence of persistent proteinuria is present. The original MDRD equation for estimated GFR is not valid for patients less than 18 years of age. Additional information may be found at www.kdoqi.org. 90 Values below the stated reference ranges of AST and ALT can be seen in normal populations. Clinical correlation is suggested. 91 Because ethnic data is not always readily available, this report includes an eGFR for both -Americans and non- Americans. The National Kidney Disease Education Program (NKDEP) does not endorse the use of the MDRD equation for patients that are not between the ages of 18 and 70, are , have extremes of body size, muscle mass, or nutritional status, or are non- or non-. According to the National Kidney Foundation, irrespective of diagnosis, the stage of the disease is based on the level of kidney function: Stage Description GFR(mL/min/1.73 m(2)) 1 Kidney damage with normal or decreased GFR 90 2 Kidney damage with mild decrease in GFR 60- 89 3 Moderate decrease in GFR 30-59 4 Severe decrease in GFR 15-29 5 Kidney failure <15 (or dialysis) 92 HDL Interpretation: Undesirable: High Risk: Less than 40 mg/dL Desirable: Low Risk: Greater than 60 mg/dL 93 LDL Interpretation: Low Risk Optimal Level: LDL Less than 100 mg/dL Near or Above Optimal: LDL 100-129 mg/dL Borderline High Risk: LDL 130-159 mg/dL High Risk : LDL 160-189 mg/dL Very High Risk: LDL Greater than 189 mg/dL 94 OPERATION/PROCEDURE Gastroscopy DIAGNOSIS: PART 1: "STOMACH, BIOPSIES": REACTIVE GASTROPATHY. NO HELICOBACTER SEEN WITH SPECIAL STAIN. PART 2: "ESOPHAGUS, BIOPSY": FRAGMENTS OF GASTRIC AND ESOPHAGEAL MUCOSA WITH ESOPHAGITIS AND GASTRITIS, NONSPECIFIC, MILD TO MODERATE. Bernardo GROSS Part 1; "STOMACH BIOPSIES". The specimen is received in an appropriately labeled container. This contains two rounded myrick colored pieces of soft tissue measuring up to 0.5 cm.; filtered and submitted in toto within a single cassette. Part 2; "ESOPHAGUS BIOPSY". The specimen is received in an appropriately labeled container. This contains four rounded myrick colored pieces of soft tissue measuring up to 0.5 cm.; filtered and submitted in toto within a single cassette. Bernardo MICROSCOPIC Part 1: Sections show glandular elongation, tortuosity, and hypercellularity of gastric pits, foveolar hyperplasia, and villiform transformation of the mucosa. The glands appear more angular than usual. Foveolar cells show mild mucin depletion and vacuolization. There is capillary congestion, vasodilatation and edema. Smooth muscle fibers extend high into the lamina propria. There are interstitial chronic inflammatory cells. There are no Helicobacter-type bacteria identified with Warthin-Starry staining. The controls are adequate. Part 2: Specimen is composed of a mixture of fragments from the esophagus, and stomach. The squamous component is acanthotic and demonstrates mild spongiosis with exocytosis of MICROSCOPIC (Continued) inflammatory cells. The glandular component demonstrates mild reactive distortion, and branching associated with varying degrees of chronic inflammation. Goblet cell metaplasia characteristic of Kendall type metaplasia is not observed. PRE OPERATIVE DIAGNOSIS Dysphagia REVIEW CODE CODE: I ---- WILL Kimbrough MD 12/24/12 1302 ---- 95 HDL Interpretation: Undesirable: High Risk: Less than 40 MG/DL Desirable: Low Risk: Greater than 60 MG/DL 96 LDL Interpretation: Low Risk Optimal Level: LDL Less than 100 MG/DL Near or Above Optimal: LDL 100-129 MG/DL Borderline High Risk: LDL 130-159 MG/DL High Risk : LDL 160-189 MG/DL Very High Risk: LDL Greater than 189 MG/DL 97 Because ethnic data is not always readily available, this report includes an eGFR for both -Americans and non- Americans. The National Kidney Disease Education Program (NKDEP) does not endorse the use of the MDRD equation for patients that are not between the ages of 18 and 70, are , have extremes of body size, muscle mass, or nutritional status, or are non- or non-. According to the National Kidney Foundation, irrespective of diagnosis, the stage of the disease is based on the level of kidney function: Stage Description GFR(mL/min/1.73 m(2)) 1 Kidney damage with normal or decreased GFR 90 2 Kidney damage with mild decrease in GFR 60- 89 3 Moderate decrease in GFR 30-59 4 Severe decrease in GFR 15-29 5 Kidney failure <15 (or dialysis) 98 Cytology Laboratory [address] [place] [address], [address] [place] [address] CYTOLOGY REPORT Name: Emma Flores : 1935 (Age: 76) Sex: F Location: [facility] Med. Rec. # Date Collected: 05/11/2012 Billing #: [id number] Date Received: 05/11/2012 Physician(s): KAYLA MOISE Source of Specimen: ENDOCERVICAL/ECTOCERVICAL THIN PREP Clinical Information: Date of Last Menstrual Period: None Provided Specimen Adequacy: SATISFACTORY FOR EVALUATION. ADEQUATE ENDOCERVICAL/TRANSFORMATION ZONE. General Categorization: NEGATIVE FOR INTRAEPITHELIAL LESION OR MALIGNANCY. dcl Electronic Signature MICHELLE Sánchez (ASCP) Reported: 05/13/2012 Cytology Outreach [facility] ICD-9 Code(s) V76.2 99 Anion gap measurement may be of limited value in the presence of any alkalosis, especially in a combined acid base disorder. . 100 Because ethnic data is not always readily available, this report includes an eGFR for both -Americans and non- Americans. The National Kidney Disease Education Program (NKDEP) does not endorse the use of the MDRD equation for patients that are not between the ages of 18 and 70, are , have extremes of body size, muscle mass, or nutritional status, or are non- or non-. According to the National Kidney Foundation, irrespective of diagnosis, the stage of the disease is based on the level of kidney function: Stage Description GFR(mL/min/1.73 m(2)) 1 Kidney damage with normal or decreased GFR 90 2 Kidney damage with mild decrease in GFR 60- 89 3 Moderate decrease in GFR 30-59 4 Severe decrease in GFR 15-29 5 Kidney failure <15 (or dialysis) 101 CHOLESTEROL INTERPRETATION: Desirable: Less than 200 MG/DL Borderline- High Risk: 200-239 MG/DL High-Risk: 240 MG/DL and over 102 HDL INTERPRETATION: Undesirable: High Risk: Less than 40 MG/DL Desirable: Low Risk: Greater than 60 MG/DL 103 LDL INTERPRETATION: Low Risk Optimal Level: LDL Less than 100 MG/DL Near or Above Optimal: LDL 100-129 MG/DL Borderline High Risk: LDL 130-159 MG/DL High Risk : LDL 160-189 MG/DL Very High Risk: LDL Greater than 189 MG/DL 104 A metabolite of Naproxen, O-desmethylnaproxen, has been shown to interfere with the Jendrassik-Pisinemo method for measuring total bilirubin. Samples from patients who have taken Naproxen have shown spurious elevation in total bilirubin levels. 105 Please note updated reference range, effective 12/20/09 Procedures Date CPT Code Description Status 01/05/2018 86462 Visual Field Exam Extended, Unilateral Or Bilateral Completed 01/05/2018 54654 Eye Exam Est Patient Comprehensive Completed 09/09/2017 77434 Bronchospasm Provocation Evaluation Multi Spirometric Completed Determinati 09/09/2017 11550 Spirometry Completed 08/14/2017 45103 EKG-Tracing And Report Completed 08/12/2017 10903 Echocardiogram Complete Completed 08/04/2017 45645 Dual Pacemaker Programming Anayisis, Review And Report Completed 07/15/2017 Mammogram Completed 06/30/2017 14766 Eye Exam Est Patient Comprehensive Completed 05/20/2017 99901 Visual Field Exam Extended, Unilateral Or Bilateral Completed 05/20/2017 87714 Eye Exam Est Patient Comprehensive Completed 02/03/2017 14370 Dual Pacemaker Programming Anayisis, Review And Report Completed 02/03/2017 62742 EKG-Tracing And Report Completed 11/18/2016 02595 Scanning Computerized Ophthalmic Diagnostic Imaging, Completed Posterior 11/18/2016 55223 Visual Field Exam Extended, Unilateral Or Bilateral Completed 11/18/2016 10459 Gonioscopy Completed 11/18/2016 11789 Eye Exam Est Patient Comprehensive Completed 11/18/2016 29199 Ophthalmic Ultrasound, Corneal Pachymetry, Completed Unilateral/Bilateral 10/14/2016 37129 Eye Exam New Patient Comprehensive Completed 08/05/2016 09045 Dual Pacemaker Programming Anayisis, Review And Report Completed 04/18/2016 36449 Echocardiogram Complete Completed 02/05/2016 79711 Dual Pacemaker Programming Anayisis, Review And Report Completed 02/05/2016 90988 Dual Pacemaker Programming Anayisis, Review And Report Completed 10/25/2015 Mammogram Completed 09/04/2015 27344 Dual Pacemaker Programming Anayisis, Review And Report Completed 09/04/2015 78438 Dual Pacemaker Programming Anayisis, Review And Report Completed 07/16/2015 14801 Echocardiogram Complete Completed 07/16/2015 03970 Stress Test Interpre And Report Only Completed 07/16/2015 37817 Stress Test Physician Super Only Completed 07/16/2015 72916 Stress Test Physician Super Only Completed 07/16/2015 78336 Myocardial Imaging Tomographic Multiple Study AT Rest Completed Or Stress 07/04/2015 65714 Dual Pacemaker Programming Anayisis, Review And Report Completed 07/04/2015 45817 Dual Pacemaker Programming Anayisis, Review And Report Completed 03/29/2015 31027 Dual Pacemaker Programming Anayisis, Review And Report Completed 03/27/2015 77313 EKG-Tracing And Report Completed 03/06/2015 37289 Dual Pacemaker Programming Anayisis, Review And Report Completed 03/06/2015 06519 Dual Pacemaker Programming Anayisis, Review And Report Completed 01/12/2015 88749 EKG-Tracing And Report Completed 01/12/2015 83183 Dual Pacemaker Programming Anayisis, Review And Report Completed 11/29/2014 35358 Echocardiogram Complete Completed 07/26/2014 03255 Mammography Unilateral Completed 07/18/2014 92375 Dual Pacemaker Programming Anayisis, Review And Report Completed 07/18/2014 72338 Dual Pacemaker Programming Anayisis, Review And Report Completed 05/16/2014 41775 Dual Pacemaker Programming Anayisis, Review And Report Completed 05/16/2014 65443 Dual Pacemaker Programming Anayisis, Review And Report Completed 04/18/2014 82921 Dual Pacemaker Programming Anayisis, Review And Report Completed 04/10/2014 48779 Dual Pacemaker Programming Anayisis, Review And Report Completed 04/10/2014 83320 Dual Pacemaker Programming Anayisis, Review And Report Completed 04/10/2014 67028 EKG Interpretation And Report Only Completed 04/09/2014 36667 Removal pacer by thoracotomy; dual Completed 04/09/2014 67361 Insertion 2 Transvenous Electrodes, Permanent Completed Pacemaker, Defibril 04/09/2014 72806 Anesthesia, Chest Surgery Closed Completed 04/08/2014 82524 Removal pacer by thoracotomy; dual Completed 04/08/2014 17606 Insert or replace pacemaker with electrodes, atrial & Completed ventricle 04/08/2014 80485 Anesthesia, Pacemaker Insertion Completed 04/07/2014 03995 EKG-Tracing And Report Completed 04/05/2014 20551 Removal pacer by thoracotomy; dual Completed 04/03/2014 87069 Stress Test Interpre And Report Only Completed 04/03/2014 18956 Stress Test Physician Super Only Completed 04/03/2014 43703 Stress Test Physician Super Only Completed 03/31/2014 11374 EKG-Tracing And Report Completed 03/29/2014 76566 Holter Monitor 24HR Inter/Report Completed 03/27/2014 01332 Pulse Oximetry Completed 03/27/2014 87570 EKG-Tracing And Report Completed 12/28/2007 50027 Stress Test Interpre And Report Only Completed 12/28/2007 33198 Stress Test Physician Super Only Completed 11/11/2007 96760 EKG-Tracing And Report Completed 09/10/2005 Colonoscopy Completed 04/12/2002 37034 EKG-Tracing And Report Completed 08/24/1994 96177 EKG Interpretation And Report Only Completed Encounters Type Date Location Provider CPT E/M Dx Office Visit 01/18/2018 1:00p [place] [address] I49.5 Z95.0 I10 G47.33 R60.0 Office Visit 10/22/2017 10:00a Primary Care Office Kayla Marie [facility] 36615 F41.9 R26.81 Office Visit 09/09/2017 12:29p [place] [address] I27.29 R06.02 G47.33 R06.02 Office Visit 09/09/2017 1:00p [place] [address] I27.29 I27.29 R06.02 R06.02 G47.33 G47.33 Office Visit 08/14/2017 1:00p [place] [address] I27.21 G47.33 I49.5 Z95.0 I10 Office Visit 07/28/2017 1:00p Primary Care Office Talia Velez M.D. 81893 J06.9 R05 Z79.899 I10 Office Visit 06/19/2017 1:00p Primary Care Office Kayla Marie, [facility] 11912 N39.0 Z00.00 Z12.31 I10 E78.5 Office Visit 02/16/2017 10:30a Primary Care Office Kayla Marie, [facility] 56136 J06.9 Office Visit 02/03/2017 11:30a Cardiology Office DESTINY Cortes 83498 I48.0 R60.9 I34.0 Z95.0 I10 I49.5 E78.2 Office Visit 12/18/2016 2:45p Primary Care Office Kayla Marie, 79792 R10.84 [facility] I10 Office Visit 11/21/2016 9:20a Primary Care Office Talia Velez M.D. 30892 I10 Office Visit 10/15/2016 10:30a Primary Care Office Kayla Marie, 83542 M76.32 [facility] Office Visit 10/09/2016 10:45a Primary Care Office Kayla Marie, 06930 J06.9 [facility] Office Visit 08/05/2016 9:40a [place] [address] I48.0 I49.5 Z95.0 I10 E78.2 R60.0 Office Visit 06/25/2016 9:45a Primary Care Office Kayla Marie, [facility] 01915 R19.7 Office Visit 06/09/2016 10:15a Primary Care Office Kayla Marie, [facility] 21229 R19.7 Office Visit 06/03/2016 9:00[place] [address] D64.9 Office Visit 05/28/2016 10:30a Primary Care Office Kayla Marie, [facility] 82518 J15.8 D64.9 Office Visit 04/18/2016 10:00a Cardiology Office Howard Espinoza, 87922 R06.02 Bernardo, [facility] I48.0 Z95.0 Office Visit 03/20/2016 9:45a Primary Care Office Kayla Marie, [facility] 81710 R05 Office Visit 02/05/2016 9:20a [place] [address] I49.5 Z95.0 I48.0 I10 R06.02 Office Visit 10/17/2015 10:45a Primary Care Office Kayla Marie, G0439 Z00.00 RPAC I49.5 I10 I87.2 Z12.31 Office Visit 07/23/2015 10:40a [place] [address] I48.0 R07.9 Z95.0 I10 R06.02 R60.0 Office Visit 07/11/2015 9:15a Primary Care Office Kayla Marie, [facility] 06376 I48.0 Office Visit 07/04/2015 9:20a [place] [address] R07.9 I10 I49.5 Z95.0 I48.0 Office Visit 05/14/2015 9:30a Primary Care Office Kayla Marie, [facility] 06695 R05 S81.802A R73.9 Office Visit 05/04/2015 10:15a Primary Care Office Kayla Marie, [facility] 59279 I10 Office Visit 03/30/2015 1:15p Primary Care Office Kayla Marie, [facility] 30037 R21 I87.2 E87.6 Office Visit 03/27/2015 9:20a [place] [address] I44.1 I48.0 Z95.0 I10 R21 Z79.01 Office Visit 01/23/2015 2:30p Primary Care Office Kayla Marie, 06294 427.31 RPA 724.5 401.1 Office Visit 01/12/2015 11:00a [place] [address] 426.13 780.79 V45.01 427.31 Office Visit 11/29/2014 8:21a Cardiology Office Howard Espinoza, 67093 786.50 [facility] 11/29/2014 2:22p [facility] Priya Pedro, 16662 786.50 [facility] Office Visit 11/27/2014 2:00p Primary Care Office Kayal Cynthia, 90286 786.2 RPAC 477.0 780.79 272.4 401.1 Office Visit 10/05/2014 10:30a [facility] Kayla Marie, [facility] 83711 459.81 355.9 719.45 Office Visit 09/12/2014 9:40a [place] [address] V45.01 427.0 724.8 401.1 Office Visit 05/16/2014 10:35a [place] [address] V45.01 724.8 427.0 Office Visit 04/11/2014 12:09p [facility] Priya Ramanalex, 69661 786.50 [facility] M.D. Office Visit 04/11/2014 1:40p Cardiology Office Howard Espinoza, 33140 786.50 M.DJaylene, [facility] Office Visit 04/07/2014 4:51p [facility] Júnior Colvin M.D. 18016 780.2 [facility] Office Visit 04/07/2014 2:05p [place] [address] 426.13 427.89 Office Visit 03/31/2014 2:40p Cardiology Office Howard Espinoza, 30683 426.10 M.D., [facility] 401.1 Office Visit 03/27/2014 11:57a Cardiology Office Howard Espinoza, 50976 427.89 M.D., [facility] 426.10 780.4 Plan of Care Future Appointment(s):07/27/2018 10:00 am - Ellie Betancourt MD at Cardiology Gvcuod6205/07/2018 8:45 am - Don Dunlap MD at Hfhatwtlcpmon86/20/2018 - Ellie Betancourt MDI49.5 Sick sinus syndromeComments:S/p dual chamber pacemaker. No significant Afib recurrences since. Off OAC. Will recheck burden withnext scheduled pacer check next [id number] Presence of cardiac pacemakerComments: Routine device checks per protocol. Scheduled for next [id number] Essential ( primary) hypertensionComments:Well controlled. No changes.G47.33 Obstructive sleep apnea (adult) (pediatric)Comments:Encouraged to reach out to Dr Almaraz to inquire about possibility of dental appliances.R60.0 Localized edemaComments: Mild due to varicose veins and PHTN. Well controlled with leg elevation and Lasix. Labs drawn in Septembershowed normal renal functions.AllFollow up:6 months.
--- OUTSIDE RECORDS SUMMARY | 2018-02-06 12:22 | XMS REPORT ---
:1935 External Reference #:[id number] Author Organization [facility] Address [address], [address] [place] [address] Phone [phone] Care Team Providers Name Role Phone Marley Mccarthy, RN, MSN, MASTER BREWER-C Care Team Information Lodging Manager Unavailable Kayla Marie RPAC Primary Care Physician Unavailable Payers Type Date Identification Numbers Payment Provider Subscriber Medicare Primary Effective: Policy Number: Medicare Emma Flores 2000 [id number] PayID: [id number] [address] [place] [address] [facility] Part B Policy Number: [id number] [facility] Emma Flores PayID: [id number] [address] [place] [address] Problems Date Description Provider Status Onset: 03/31/2014 Benign essential hypertension Howard Espinoza M.D., [facility] Active Onset: 05/16/2014 Cardiac pacemaker in situ [...] Note: hips Onset: 12/23/2012 Esophagitis Kayla Marie, [facility] Active Onset: 09/30/2011 Varicose veins of lower extremity Kayla Marie, [facility] Active Note: L>R Onset: 06/18/2011 Anxiety state Kayla Marie, [facility] Active Onset: 06/18/2011 Hyperlipidemia Kayla Marie, [facility] Active Onset: 10/05/2014 Degeneration of lumbar intervertebral Kayla Marie, [facility] Active disc Note: L3 thru S1 Onset: 10/09/2014 Pruritic rash Kayla Marie, [facility] Active Note: (L) foot due to venous insufficiency Onset: 03/27/2015 Atrioventricular block, second degree Ellie Betancourt MD Active Onset: 03/30/2015 Deep venous thrombosis of lower Kayla Marie, [facility] Active extremity Note: right, 11/2014 Onset: 04/18/2016 Dyspnea Ellie Betancourt MD Active Onset: 10/05/2017 Obstructive sleep apnea syndrome Kayla Marie, [facility] Active Note: tx 2017 Onset: 03/27/2015 Anticoagulant [...] unspecified Resolved: 10/21/2017 Onset: 05/29/2016 Anemia Kayla [place], [facility] Resolved Resolved: 10/26/2017 Note: noted 05/2016 Family History Date Family Member(s) Problem(s) Comments General Non Contributory : (age 59 Father due to PA Years) Father CAD sudden @ 59 : [...] tablet by [place], mouth M.D. every morning Diltiazem HCL ER 08/14 Active Caps ER 240mg 90caps 1 tab po [place] 24HR daily at MD Serafin bedtime Latanoprost 05/20 Active Solution 0.005% 2.5unit 1 [...] Active Capsules 20mg 180caps 1 by mouth [place] /0000 DR twice a MD Serafin day Potassium Active Capsules 10Meq 180caps 2 by mouth [place] Chloride ER /0000 ER every day MD Serafin Atkins Q Plus Active 2 caps by Unknown Resueritrol /0000 mouth daily Multivitamin Active Tablets once daily Unknown Adults /0000 Lasix Active Tablets 20mg 180tabs 1-2 tabs Jose / by mouth [place], every day M.D. Macrobid 06/22 Hx Capsules 100mg 20caps 1 by mouth Jose /2018 twice a [place], - day for 10 [...] drink 1 D64.9 0ML bottle at [place] 12pMD ирина (noon)the day before the procedure Dulcolax 06/03 Hx Tablets 5mg 4tabs [address] clare Marroquin 8pm MD [place] day before the procedure Proair Respiclick 05/28 Hx Aerosol 108(90Bas sample 1-2 J15.8 Martinez E. /2015 e) inhalation Román DO mcg/Act s every 4 hours as needed Amoxicillin/Potas 05/26 Hx Tablets 500-125 take 1 Unknown sium Clavulanate tablet - every 12 / hours 10 days Cephalexin 05/14 Hx Capsules 500mg 30caps 1 cap ( or S81.802A Martinez Turcios tab) by Román MARS mouth three times a day Tessalon 05/14 Hx Capsules 200mg 30caps 1 cap by R05 Martinez Turcios mouth Román MARS three times a day for cough Supple For Health 05/04 Hx Martinez Turcios And Román MARS Prazosin HCL 04/04 Hx Capsules 1mg 30caps 1 cap by Martinez Turcios mouth Román MARS - every 04/12 night before bedtime for leg discomfort Betamethasone 03/01 Hx Cream 0.05% 45gm thin layer Martinez Turcios Dipropionate for itchy Román MARS rash twice a day Ultracet 01/23 Hx Tablets 37.5-325m 60tabs 1-2 tabs 724.5 Martinez Turcios g by vicky [place] DO every 6 hours as needed back pain [...] Tablets 5mg 90tabs 1-2 tab by Salazar Reyes Aguilar bid-edinsond MD for anxiety as needed Ibuprofen 07/17 Hx Tablets 800mg 90tabs one tab by Salazar mouth Lauren - every 8 , MD 10/05 hours needed with food for pain Acetadryl 06/08 Hx Tablets 25-500mg as needed Salazar Reyes Ramos MD 10/05 Moxifloxacin HCL 06/01 Hx Tablets 400mg 5tabs Take 1 tablet - (400 mg 10/05 total) mouth daily for 5 days Guaifenesin ER 05/31 Hx Tablets 600mg 20tabs Take 1 ER 12HR tablet - (600 mg 10/05 total) mouth 2 (two) times a day for 10 days Micardis HCT 05/17 Hx Tablets 40/12.5 90tabs take 1 tablet by Lauren foster MD daily Telmisartan 05/16 Hx Tablets 40mg 90tabs [...] Hx Tablets 300-30mg 12tabs 1 tab by Codeine #3 vicky Betancourt MD - every 6 05/16 hours needed for severe pain Hydrocortisone 05/13 Hx Ointment 0.2% 45units thin layer [facility] /2012 to foot Lauren rash MD hector Micardis 00 Hx Tablets 40mg 90tabs 1 by mouth Unknown /0000 every day Bystolic 00 Hx Tablets 10mg 90tabs 1 by mouth Unknown /0000 every day Buspirone HCL 00 Hx Tablets 5mg 90tabs 5 mg tab Unknown /0000 by mouth - prn 06/01 Telmisartan/[place] 0000 Hx Tablets 40-12.5mg Unknown chlorothiazide /0000 - 05/16 Omeprazole 00 Hx Tablets 20mg 30tabs 1 po bid [...] Hx Capsules 12.5mg Once Daily Unknown de / prn Edema - 05/16 Aspirin Ec Hx Tablets 325mg Take 325 Unknown / DR mg by - mouth 10/05 Indomethacin Hx Capsules 50mg Take 50 mg Unknown /0000 by mouth daily as needed (inflammat ion) Bystolic Hx Tablets 2.5mg Take 2.5 Unknown /0000 mg by mouth nightly Omeprazole Hx Capsules 20mg Take 20 mg Unknown /0000 DR by mouth 2 (two) times a day Metoprolol Hx Tablets 25mg 60tabs 1 by mouth [place] Tartrate /0000 twice a MD Serafin - day 03/27 Oxycodone-Acetami Hx Tablets 5-325mg 1-2 by Unknown nophen /0000 mouth - every 4 08/30 hours needed for pain Xarelto Hx Tablets 20mg 90tabs 1 by mouth [place] /0000 every day MD Serafin - 04/30 Micardis Hx Tablets 40mg 1 by mouth Unknown /0000 every day - 03/01 Fish Oil Hx Capsules 500mg 1 by mouth Unknown /0000 every day Enlcw-3-Occt Hx Capsules 2gm 1 tabs by Unknown Ethyl Esters /0000 mouth twice a day Diltiazem HCL ER Hx Caps ER 300mg 90caps 1 by mouth Howard Gregorio Beads / 24HR every day Alexis Ramos M.D., 08/14 [facility] /2017 Benzonatate Hx Capsules 200mg one tablet Unknown /0000 by mouth - every 8 07/24 hours needed cough Ventolin HFA 00 Hx Aerosol 108(90Bas 1-2 puffs Unknown /0000 e) every 4-6 mcg/Act hours as needed Iron 00 Hx Tablets 325(65Fe) 1 by mouth Unknown /0000 mg every day, - 07/2016 decreased to twice a week Cranberry Hx Capsules 200mg 1 capsule Unknown /0000 three times a day Immunizations CPT Code Status Date Vaccine Reaction Lot # 89109 Given 03/25/2017 Pneumovax Injection received at /PW 61163 Given 02/09/2017 Influenza Virus Vaccine received at [facility]/PW Quadrivalent Iiv4 Split Preser Free Id Q2038 Given 02/22/2016 Influenza Vaccine (Fluzone) Age 3 And Older 55553 Given 02/22/2016 Pneumococcal Conjugate Vaccine 13 Valent For Intramuscular Use Q2038 Given 03/06/2015 Influenza Vaccine (Fluzone) Age 3 And Older 77376 Given 02/22/2014 flu vaccination 86018 Given 03/29/2013 flu vaccination 64203 Given 07/07/2012 Zoster Vaccine Live Injection 39341 Given 04/07/2012 Pneumovax Injection 50656 Given 04/07/2012 Tdap injection 12341 Given 03/05/2012 flu vaccination 55783 Given 03/20/2011 flu vaccination 44640 Given 03/20/2011 flu vaccination 36082 Given 03/20/2011 flu vaccination 70010 Given 03/25/2010 flu vaccination 61391 Given 05/02/2008 flu vaccination 36479 Given 04/27/2007 flu vaccination 49469 Given 04/06/2006 Pneumovax Injection 25461 Given 04/06/2006 flu vaccination 19632 Given 06/20/2005 flu vaccination Vital Signs Date Vital Result Comment 10/22/2017 BP Systolic Sitting Right Arm 142 mmHg BP Diastolic Sitting Right Arm 80 mmHg Body Temperature 98.0 F Heart Rate 75 /min reg Respiratory Rate 18 /min Height 58.5 inches 4'10.50" Weight 157.00 lb BMI (Body Mass Index) 32.3 kg/m2 BSA (Body Surface Area) 1.65 m2 [place] body weight in kilograms 45 O2 % BldC Oximetry 98 % ra 09/09/2017 BP Systolic Sitting Left Arm 120 mmHg BP Diastolic Sitting Left Arm 84 mmHg Heart Rate 94 /min Respiratory Rate 18 /min Height 58.5 inches 4'10.50" Weight 156.00 lb BMI (Body Mass Index) 32.0 kg/m2 BSA (Body Surface Area) 1.65 m2 [place] body weight in kilograms 45 O2 % BldC Oximetry 97 % 08/14/2017 BP Systolic Sitting Left Arm 120 mmHg BP Diastolic Sitting Left Arm 82 mmHg Heart Rate 84 /min Respiratory Rate 16 /min Height 58.5 inches 4'10.50" Weight 158.00 lb BMI (Body Mass Index) 32.5 kg/m2 BSA (Body Surface Area) 1.66 m2 [place] body weight in kilograms 45 07/28/2017 BP Systolic 127 mmHg BP Diastolic 82 mmHg Heart Rate 84 /min Respiratory Rate 14 /min Height 58.5 inches 4'10.50" Weight 154.38 lb BMI (Body Mass Index) 31.7 kg/m2 BSA (Body Surface Area) 1.64 m2 [place] body weight in kilograms 45 O2 % BldC Oximetry 97 % 06/19/2017 BP Systolic Sitting Right Arm 124 mmHg BP Diastolic Sitting Right Arm 66 mmHg Body Temperature 97.5 F Heart Rate 80 /min Respiratory Rate 16 /min Height 58.5 inches 4'10.50" Weight 158.00 lb BMI (Body Mass Index) 32.5 kg/m2 BSA (Body Surface Area) 1.66 m2 [place] body weight in kilograms 45 O2 % BldC Oximetry 96 % 02/16/2017 BP Systolic Sitting Right Arm 130 mmHg BP Diastolic Sitting Right Arm 78 mmHg Body Temperature 99.0 F Heart Rate 67 /min Respiratory Rate 18 /min Height 63 inches 5'3" Weight 158.00 lb BMI (Body Mass Index) 28.0 kg/m2 BSA (Body Surface Area) 1.75 m2 [place] body weight in kilograms 52 O2 % BldC Oximetry 95 % ra 02/03/2017 BP Systolic Sitting Right Arm 128 mmHg BP Diastolic Sitting Right Arm 76 mmHg Heart Rate 80 /min Respiratory Rate 16 /min Height 63 inches 5'3" Weight 162.00 lb BMI (Body Mass Index) 28.7 kg/m2 BSA (Body Surface Area) 1.77 m2 [place] body weight in kilograms 52 12/18/2016 BP Systolic Sitting Right Arm 110 mmHg BP Diastolic Sitting Right Arm 72 mmHg Body Temperature 98.2 F Heart Rate 68 /min Respiratory Rate 24 /min Height 63 inches 5'3" Weight 159.00 lb BMI (Body Mass Index) 28.2 kg/m2 BSA (Body Surface Area) 1.75 m2 [place] body weight in kilograms 52 O2 % BldC Oximetry 95 % ra 11/21/2016 BP Systolic 126 mmHg BP Diastolic 82 mmHg Heart Rate 84 /min 10/15/2016 BP Systolic Sitting Right Arm 146 mmHg BP Diastolic Sitting Right Arm 90 mmHg Height 63.5 inches 5'3.50" Weight 165.38 lb BMI (Body Mass Index) 28.8 kg/m2 BSA (Body Surface Area) 1.79 m2 [place] body weight in kilograms 53 10/09/2016 BP Systolic Sitting Right Arm 122 mmHg BP Diastolic Sitting Right Arm 68 mmHg Body Temperature 97.8 F Heart Rate 84 /min Height 63.5 inches 5'3.50" Weight 167.31 lb BMI (Body Mass Index) 29.2 kg/m2 BSA (Body Surface Area) 1.80 m2 [place] body weight in kilograms 53 O2 % [...] kg/m2 BSA (Body Surface Area) 1.80 m2 [place] body weight in kilograms 53 O2 % [...] 1 Lymph % 23.0 % 20.0-42.0 1 [place] % 7.9 % 4.3-13.2 1 Eo% 0.4 % 0.0-6.6 1 Bas% 0.3 % 0.0-1.1 1 Neut# 7.13 K/uL High 1.8-7.0 1 Lymph # 2.39 K/uL 1.0-4.0 1 Garrett # 0.82 K/uL 0.3-0.9 1 Eos # [...] Ketone NEGATIVE mg/dL Negative 5 Urine Specific [place] <=1.005 Low 1.010-1.030 5 Urine Blood NEGATIVE [...] Lymph % 15.0 % Low 20.0-42.0 9 Garrett % 5.1 % 4.3-13.2 9 Eo% 0.2 % 0.0-6.6 9 Bas% 0.3 % 0.0-1.1 9 Neut# 8.25 K/uL High 1.8-7.0 9 Lymph # 1.56 K/uL 1.0-4.0 9 Garrett # 0.53 K/uL 0.3-0.9 9 Eos # [...] NOTE> Source: URINE, CLEAN CAT <SEE NOTE> , 17 Ua RFX Micro & Culture II 05/26/2017 Urine Color YELLOW Yellow 9 Urine Clarity CLEAR Clear 9 Urine Glucose - Dipstick NEGATIVE mg/dL Negative 9 Urine Bilirubin - Dipstick NEGATIVE Negative 9 Urine Ketone NEGATIVE mg/dL Negative 9 Urine Specific [place] 1.010 1.010-1.030 9 Urine Blood NEGATIVE Negative [...] 9 Source: URINE, CLEAN CAT <SEE NOTE> , 18 Xray 05/26/2017 Chest, 2 Views <pending> [...] 25 Lymph % 34.2 % 20.0-42.0 25 Garrett % 10.1 % 4.3-13.2 25 Eo% 1.8 % 0.0-6.6 25 Bas% 0.4 % 0.0-1.1 25 Neut# 4.09 K/uL 1.8-7.0 25 Lymph # 2.61 K/uL 1.0-4.0 25 Garrett # 0.77 K/uL 0.3-0.9 25 Eos # [...] Ketone NEGATIVE mg/dL Negative 26 Urine Specific [place] <=1.005 Low 1.010-1.030 26 Urine Blood NEGATIVE [...] 26 Lymph % 21.7 % 20.0-42.0 26 Garrett % 6.9 % 4.3-13.2 26 Eo% 0.6 % 0.0-6.6 26 Bas% 0.2 % 0.0-1.1 26 Neut# 6.98 K/uL 1.8-7.0 26 Lymph # 2.14 K/uL 1.0-4.0 26 Garrett # 0.68 K/uL 0.3-0.9 26 Eos # [...] 30 Lymph # 3.08 K/uL 1.8-7.0 30 Garrett # 0.71 K/uL 0.3-0.9 30 Eos # [...] 34 Lymph % 28.6 % 17.0-46.1 34 Garrett % 13.4 % High 4.3-13.2 34 Eo% 0.3 % 0.0-6.6 34 Bas% 0.8 % 0.0-1.1 34 Neut# 4.27 K/uL 1.8-7.0 34 Lymph # 2.14 K/uL 1.8-7.0 34 Garrett # 1.00 K/uL High 0.3-0.9 34 Eos [...] % 40.4-72.8 Lymph % 26.0 % 17.0-46.1 Garrett % 7.2 % 4.3-13.2 Eo% 1.2 % 0.0-6.6 Bas% 0.3 % 0.0-1.1 Neut# 5.75 K/uL 1.8-7.0 Lymph # 2.30 K/uL 1.8-7.0 Garrett # 0.64 K/uL 0.3-0.9 Eos # 0.11 [...] % 40.4-72.8 Lymph % 28.8 % 17.0-46.1 Garrett % 9.3 % 4.3-13.2 Eo% 1.5 % 0.0-6.6 Bas% 0.4 % 0.0-1.1 Neut# 4.50 K/uL 1.0-7.0 Lymph # 2.16 K/uL 1.8-7.0 Garrett # 0.70 K/uL 0.3-0.9 Eos # 0.11 [...] % 40.4-72.8 Lymph % 29.6 % 17.0-46.1 Garrett % 6.5 % 4.3-13.2 Eo% 1.1 % 0.0-6.6 Bas% 0.2 % 0.0-1.1 Neut# 6.44 K/uL 1.0-7.0 Lymph # 3.05 K/uL 1.8-7.0 Garrett # 0.67 K/uL 0.3-0.9 Eos # 0.11 [...] 30.8-34.3 Mean Platelet Volume 10.9 fL 8.9-12.4 Garrett # 0.71 K/uL 0.3-0.9 Neut# 4.69 K/uL [...] 30.8-34.3 Mean Platelet Volume 9.8 fL 8.9-12.4 Garrett # 0.87 K/uL 0.3-0.9 Garrett % 7.8 % 4.3-13.2 Neut# 8.65 K/uL [...] 30.8-34.3 Mean Platelet Volume 9.7 fL 8.9-12.4 Garrett # 0.75 K/uL 0.3-0.9 Garrett % 10.3 % 4.3-13.2 Neut# 4.12 K/uL [...] 30.8-34.3 Mean Platelet Volume 9.7 fL 8.9-12.4 Garrett # 1.12 K/uL High 0.3-0.9 Garrett % 11.3 % 4.3-13.2 Neut# 6.14 K/uL [...] D deficiency has been defined by the [place] of [employer] and an Endocrine Society practice guideline as a level of serum 25-OH vitamin D less than 20 ng/mL (1,2). The Endocrine Society went on to further define vitamin D insufficiency as a level between 21 and 29 ng/mL (2). 1. IOM ([place] of [employer]). 2010. Dietary reference intakes for calcium and D. [place]: The National Academies Press. 2. Dejan MF, Ciara TEMPLETON, Elisa VICTOR, et al. Evaluation, treatment, and prevention of vitamin D deficiency: an Endocrine Society clinical practice guideline. JCEM. 2010; 96(7):1911-30. Performed at: RN - [facility] [id number] Turn Supervisor: Carmel Brady MD, Phone: [phone] 4 Political Research Scientist: [id number] N39.0 6 URINE, CLEAN CATCH 7 CITROBACTER FREUNDII 8 > 100,000 CFU/mL 9 SOB,DIZZY,NAUSEA 10 0.0 - 0.045 ng/mL: Normal 0.046 - 0.5 ng/mL: Suggestive 0.6 - 1.5 ng/mL: Consistent 11 <=0.49 ug/mL - Low likelihood of DIC, DVT or Pulmonary Embolism >0.49 ug/mL - Additional testing should be done to rule out DIC, DVT, or Pulmonary embolism as clinically indicated. ([facility] has established a 97.89% negative predictive [...] result called to: [] - 05/28/16 at 194205/28/161942: LYMPH % previously reported as: 36.4 % Amended result called to: [] - 05/28/16 at 194205/28/161942: MONO % previously reported as: 8.4 % Amended result called to: [] - 05/28/16 at 194205/28/161942: EO% previously reported as: 1.4 % Amended result called to: [] - 05/28/16 at 194205/28/161942: BAS% previously reported as: 0.4 % Amended result called to: [] - 05/28/16 at 1943 32 Result confirmed by repeat analysis. 33 [...] for more aggressive treatment of glycemia. The [place] Diabetes [employer] recommends that a primary goal [...] DVT, or Pulmonary embolism as clinically indicated. ([facility] has established a 97.89% negative predictive value for thrombotic disease when a cutoff value of 0.5 ug/mL is used.) 53 0.0 - 0.045 ng/mL: Normal 0.046 - 0.5 ng/mL: Suggestive 0.6 - 1.5 ng/mL: Consistent 54 Interpretation: NEGATIVE FOR INTRAEPITHELIAL LESION OR MALIGNANCY. Specimen Adequacy: SATISFACTORY FOR EVALUATION. Additional Findings: ENDOCERVICAL/TRANSFORMATION ZONE PRESENT. Cytology Laboratory [address] [place] [address], [address] [place] [address] CYTOLOGY REPORT Name: Emma Flores : 1935 (Age: 79) Sex: F Location: [facility] Med. Rec. # [id number] Date Collected: 2014 Billing #: [id number] Date Received: 07/11/2014 Requisition # [id number] Physician( s): KAYLA MOISE Source of Specimen: ENDOCERVICAL/ECTOCERVICAL THIN PREP Clinical Information: Date of Last Menstrual Period: 1989 kfs Electronic Signature MICHELLE Martinez (ASCP) Reported: 07/13/2014 [facility] ICD-9 Code(s) V76.2 55 >100 to <200 [...] failure <15 (or dialysis) 98 [facility] [address] [place] [address] [place] [address] CYTOLOGY REPORT Name: Emma Flores : 1935 (Age: 76) Sex: F Location: [facility] Rec. # Date Collected: 05/11/2012 Billing #: [id number] Date Received: 05/11/2012 Physician(s): KAYLA MOISE Source of Specimen: ENDOCERVICAL/ECTOCERVICAL THIN PREP Clinical Information: Date of Last Menstrual Period: None Provided Specimen Adequacy: SATISFACTORY FOR EVALUATION. ADEQUATE ENDOCERVICAL/TRANSFORMATION ZONE. General Categorization: NEGATIVE FOR INTRAEPITHELIAL LESION OR MALIGNANCY. dcl Electronic Signature MICHELLE Sánchez (ASCP) Reported: 05/13/2012 Cytology [facility] ICD-9 Code(s) V76.2 99 Anion gap measurement [...] has been shown to interfere with the Jendrassik-Yefri method for measuring total bilirubin. Samples from patients who have taken Naproxen have shown spurious elevation in total bilirubin levels. 105 Please note updated reference range, effective 12/20/09 Procedures Date CPT Code Description Status 01/05/2018 94426 Visual Field Exam Extended, Unilateral Or Bilateral Completed 01/05/2018 60436 Eye Exam Est Patient Comprehensive Completed 09/09/2017 31742 Bronchospasm Provocation Evaluation Multi Spirometric Completed Determinati 09/09/2017 40851 Spirometry Completed 08/14/2017 33411 EKG-Tracing And Report Completed 08/12/2017 60545 Echocardiogram Complete Completed 08/04/2017 29648 Dual Pacemaker Programming Anayisis, Review And Report Completed 07/15/2017 Mammogram Completed 06/30/2017 46736 Eye Exam Est Patient Comprehensive Completed 05/20/2017 31239 Visual Field Exam Extended, Unilateral Or Bilateral Completed 05/20/2017 61509 Eye Exam Est Patient Comprehensive Completed 02/03/2017 63469 Dual Pacemaker Programming Anayisis, Review And Report Completed 02/03/2017 98819 EKG-Tracing And Report Completed 11/18/2016 23821 Scanning Computerized Ophthalmic Diagnostic Imaging, Completed Posterior 11/18/2016 02005 Visual Field Exam Extended, Unilateral Or Bilateral Completed 11/18/2016 61016 Gonioscopy Completed 11/18/2016 29529 Eye Exam Est Patient Comprehensive Completed 11/18/2016 76075 Ophthalmic Ultrasound, Corneal Pachymetry, Completed Unilateral/Bilateral 10/14/2016 88968 Eye Exam New Patient Comprehensive Completed 08/05/2016 01179 Dual Pacemaker Programming Anayisis, Review And Report Completed 04/18/2016 28044 Echocardiogram Complete Completed 02/05/2016 75724 Dual Pacemaker Programming Anayisis, Review And Report Completed 02/05/2016 82797 Dual Pacemaker Programming Anayisis, Review And Report Completed 10/25/2015 Mammogram Completed 09/04/2015 68523 Dual Pacemaker Programming Anayisis, Review And Report Completed 09/04/2015 68475 Dual Pacemaker Programming Anayisis, Review And Report Completed 07/16/2015 95898 Echocardiogram Complete Completed 07/16/2015 02198 Stress Test Interpre And Report Only Completed 07/16/2015 57906 Stress Test Physician Super Only Completed 07/16/2015 75935 Stress Test Physician Super Only Completed 07/16/2015 80483 Myocardial Imaging Tomographic Multiple Study AT Rest Completed Or Stress 07/04/2015 35303 Dual Pacemaker Programming Anayisis, Review And Report Completed 07/04/2015 35378 Dual Pacemaker Programming Anayisis, Review And Report Completed 03/29/2015 24524 Dual Pacemaker Programming Anayisis, Review And Report Completed 03/27/2015 00422 EKG-Tracing And Report Completed 03/06/2015 01313 Dual Pacemaker Programming Anayisis, Review And Report Completed 03/06/2015 37096 Dual Pacemaker Programming Anayisis, Review And Report Completed 01/12/2015 28576 EKG-Tracing And Report Completed 01/12/2015 63798 Dual Pacemaker Programming Anayisis, Review And Report Completed 11/29/2014 92859 Echocardiogram Complete Completed 07/26/2014 19049 Mammography Unilateral Completed 07/18/2014 87407 Dual Pacemaker Programming Anayisis, Review And Report Completed 07/18/2014 09793 Dual Pacemaker Programming Anayisis, Review And Report Completed 05/16/2014 02161 Dual Pacemaker Programming Anayisis, Review And Report Completed 05/16/2014 19297 Dual Pacemaker Programming Anayisis, Review And Report Completed 04/18/2014 25838 Dual Pacemaker Programming Anayisis, Review And Report Completed 04/10/2014 09149 Dual Pacemaker Programming Anayisis, Review And Report Completed 04/10/2014 44092 Dual Pacemaker Programming Anayisis, Review And Report Completed 04/10/2014 34306 EKG Interpretation And Report Only Completed 04/09/2014 71958 Removal pacer by thoracotomy; dual Completed 04/09/2014 80249 Insertion 2 Transvenous Electrodes, Permanent Completed Pacemaker, Defibril 04/09/2014 46098 Anesthesia, Chest Surgery Closed Completed 04/08/2014 92224 Removal pacer by thoracotomy; dual Completed 04/08/2014 94058 Insert or replace pacemaker with electrodes, atrial & Completed ventricle 04/08/2014 05250 Anesthesia, Pacemaker Insertion Completed 04/07/2014 98380 EKG-Tracing And Report Completed 04/05/2014 72470 Removal pacer by thoracotomy; dual Completed 04/03/2014 04785 Stress Test Interpre And Report Only Completed 04/03/2014 54889 Stress Test Physician Super Only Completed 04/03/2014 06123 Stress Test Physician Super Only Completed 03/31/2014 38887 EKG-Tracing And Report Completed 03/29/2014 53260 Holter Monitor 24HR Inter/Report Completed 03/27/2014 30192 Pulse Oximetry Completed 03/27/2014 09506 EKG-Tracing And Report Completed 12/28/2007 83570 Stress Test Interpre And Report Only Completed 12/28/2007 88972 Stress Test Physician Super Only Completed 11/11/2007 99964 EKG-Tracing And Report Completed 09/10/2005 Colonoscopy Completed 04/12/2002 28830 EKG-Tracing And Report Completed 08/24/1994 35560 EKG Interpretation And Report Only Completed Encounters Type Date Location Provider CPT E/M Dx Office Visit 10/22/2017 10:00a Primary Care Office Kayla Marie 28302 F41.9 [facility] R26.81 Office Visit 09/09/2017 12:29p [place] [address] I27.29 R06.02 G47.33 R06.02 Office Visit 09/09/2017 1:00p [place] [address] I27.29 I27.29 R06.02 R06.02 G47.33 G47.33 Office Visit 08/14/2017 1:00p [place] [address] I27.21 G47.33 I49.5 Z95.0 I10 Office Visit 07/28/2017 1:00p Primary Care Office Talia Velez M.D. 89741 J06.9 R05 Z79.899 I10 Office Visit 06/19/2017 1:00p Primary Care Office Kayla Marie [facility] 80423 N39.0 Z00.00 Z12.31 I10 E78.5 Office Visit 02/16/2017 10:30a Primary Care Office Kayla Marie [facility] 60610 J06.9 Office Visit 02/03/2017 11:30a Cardiology Office DESTINY Cortes 11519 I48.0 R60.9 I34.0 Z95.0 I10 I49.5 E78.2 Office Visit 12/18/2016 2:45p Primary Care Office Kayla Marie, 51578 R10.84 [facility] I10 Office Visit 11/21/2016 9:20a Primary Care Office Talia Velez M.D. 24975 I10 Office Visit 10/15/2016 10:30a Primary Care Office Kayla Marie, 76232 M76.32 RPA Office Visit 10/09/2016 10:45a Primary Care Office Kayla Marie, 61081 J06.9 RPA Office Visit 08/05/2016 9:40a [place] [address] I48.0 I49.5 Z95.0 I10 E78.2 R60.0 Office Visit 06/25/2016 9:45a Primary Care Office Kayla Marie, [facility] 63671 R19.7 Office Visit 06/09/2016 10:15a Primary Care Office Kayla Marie, [facility] 58678 R19.7 Office Visit 06/03/2016 9:00[place] [address] D64.9 Office Visit 05/28/2016 10:30a Primary Care Office Kayla Marie, [facility] 53745 J15.8 D64.9 Office Visit 04/18/2016 10:00a Cardiology Office Howard Espinoza, 59113 R06.02 Bernardo, [facility] I48.0 Z95.0 Office Visit 03/20/2016 9:45a Primary Care Office Kayla Marie, [facility] [address] R05 Office Visit 02/05/2016 9:20a [place] [address] I49.5 Z95.0 I48.0 I10 R06.02 Office Visit 10/17/2015 10:45a Primary Care Office Kayla Marie, G0439 Z00.00 [facility] I49.5 I10 I87.2 Z12.31 Office Visit 07/23/2015 10:40a [place] [address] I48.0 R07.9 Z95.0 I10 R06.02 R60.0 Office Visit 07/11/2015 9:15a Primary Care Office Kayla Marie, [facility] [address] I48.0 Office Visit 07/04/2015 9:20a [place] [address] R07.9 I10 I49.5 Z95.0 I48.0 Office Visit 05/14/2015 9:30a Primary Care Office Kayla Marie, [facility] 33605 R05 S81.802A R73.9 Office Visit 05/04/2015 10:15a Primary Care Office Kayla Marie [facility] [address]110[address] I10 Office Visit 03/30/2015 1:15p Primary Care Office Kayla Marie, [facility] 71828 R21 I87.2 E87.6 Office Visit 03/27/2015 9:20a [place] [address] I44.1 I48.0 Z95.0 I10 R21 Z79.01 Office Visit 01/23/2015 2:30p Primary Care Office Kayla Marie 08316 427.31 RPA 724.5 401.1 Office Visit 01/12/2015 11:00a [place] [address] 426.13 780.79 V45.01 427.31 Office Visit 11/29/2014 2:22p [facility] Priya Pedro, [address]305 786.50 [facility] M.DJaylene Office Visit 11/29/2014 8:21a Cardiology Office Howard Espinoza [address] 786.50 [facility] 11/27/2014 2:00p Primary Care Office Kayla Marie, 07052 786.2 RPA 477.0 780.79 272.4 401.1 Office Visit 10/05/2014 10:30a Family Medicine Kayla Marie, [facility] 39482 459.81 355.9 719.45 Office Visit 09/12/2014 9:40a [place] [address] V45.01 427.0 724.8 401.1 Office Visit 05/16/2014 10:35a [place] [address] V45.01 724.8 427.0 Office Visit 04/11/2014 12:09p [facility] Priya Pedro 41206 786.50 [facility] M.DJaylene Office Visit 04/11/2014 1:40p Cardiology Office Howard Espinoza, 74851 786.50 M.D., [facility] Office Visit 04/07/2014 4:51p [facility] Júnior Colvin M.D. 02715 780.2 [facility] Office Visit 04/07/2014 2:05p [place] [address] 426.13 427.89 Office Visit 03/31/2014 2:40p Cardiology Office Howard Espinoza, 87672 426.10 M.D., [facility] 401.1 Office Visit 03/27/2014 11:57a Cardiology Office Howardariella Espinoza, 22928 427.89 M.D., [facility] 426.10 780.4 Plan of Care Future Appointment(s):05/07/2018 8:45 am - Don Dunlap MD at [email or web address]/ 04/2018 8:40 am - DESTINY Cortes at Cardiology [facility]0401/05/2018 - Don Dunlap MDH40.053 Ocular hypertension, bilateralComments:- IOP 23, 27 -> 17, 18 with latanoprost today- pachymetry 581, 576- oct intact without suggestionof deficit 10/2016; will repeat next visit with dilation- angle open on gonioscopy- vf non-specific deficits out of proportion to oct and clinical exam; vf today with sup deficit; could be eyelid artifact vs beginning of arcuate in setting of elevated iop; each time we perform vf, results will vary, will perform next visit to further try and elucidate whether vf deficit exists- please continue latanoprost 1 drop each eye at night- iop check 4 months with vf 24-2, oct rnfl dilation- discussed potential for glaucoma, persistent elevated IOP, potential for vision lossFollow up:- iop check 4 months with vf 24-2, oct rnfl [id number] Dry eye syndrome of bilateral lacrimal glandsComments:- looks improved- warm compresses- artificial tears both eyes: please consider 4 times a day if needed- consider ointment at night- can consider punctal occlusion or [id number] Combined forms of age-related cataract, bilateralComments:- visually significant- as vision improving with lubrication; will follow- if bothersome, consider removal of cataract
[2018-02-06 12:32] VITALS: BP 112/65
--- NOTE | 2018-02-06 12:54 | UC ---
Respiratory Complaint HPI - HPI Summary HPI Summary: 82 y/o female presents to the urgent care c/o productive cough w/ chest congestion since Thursday02/02/2018. Symptoms started w/ a common cold w/ clear nasal discharge and sinus congestion and mild subjective low grade fever the first day. She has been taking Benadryl PO to alleviate symptoms. However she has been feeling w/ fatigue, mild lower back pain, decrease appetite and B/L ear pain. Pain is 2/10. Pt states cough is clear at times and other times is yellowish in color. Pt denies fever, SOB, chest pain, VICTOR, abdominal pain, urinary symptoms, N/V/D, or flank pain. She though she was getting better yesterday, but today she woke up w/ a lot of fatigue. - History of Current Complaint Chief Complaint: UCRespiratory Stated Complaint: CHILLS CHEST CONGESTION COUGH Time Seen by Provider: 02/06/18 12:53 Hx Obtained From: Patient ?: No - Menopausal Onset/Duration: Gradual Onset, Lasting Days - 5 days, Still Present, Worse Since - today Timing: Constant Severity Initially: Mild Severity Currently: Mild Pain Intensity: 4 Pain Scale Used: 0-10 Numeric Character: Cough: Productive, Sputum Description: - clear at times Aggravating Factors: Recumbent Position Alleviating Factors: OTC Meds Associated Signs And Symptoms: Positive: Fever - subjesctive low grade fever the first day of symptoms, URI, Nasal Congestion, Sinus Discomfort. Negative: Chills - Risk Factors Pulmonary Embolism Risk Factors: Negative Cardiac Risk Factors: Negative Pseudomonas Risk Factors: Negative Tuberculosis Risk Factors: Negative - Allergies/Home Medications Allergies/Adverse Reactions: Allergies Allergy/AdvReac Type Severity Reaction Status Date / Time amoxicillin AdvReac See Comment Verified 02/06/18 12:31 PMH/Surg Hx/FS Hx/Imm Hx Previously Healthy: Yes Endocrine History: Dyslipidemia Cardiovascular History: Hypertension, Pacemaker/ICD GI/ History: Gastroesophageal Reflux - Surgical History Surgical History: Yes Surgery Procedure, Year, and Place: tumor removed in right abdomen. pacemaker 04/2014, vein stripping - Family History Known Family History: Positive: Cardiac Disease, Hypertension - Social History Occupation: Retired Lives: With Family Alcohol Use: Occasionally Substance Use Type: None Smoking Status (MU): Never Smoked Tobacco Review of Systems Constitutional: Fatigue, Other - body aches Skin: Negative Eyes: Negative ENT: Ear Ache - B/L ear pain, Nasal Discharge - clear, Sinus Congestion Respiratory: Cough - productive Cardiovascular: Negative Gastrointestinal: Negative Genitourinary: Negative Motor: Negative Neurovascular: Negative Musculoskeletal: Negative Neurological: Negative Psychological: Negative Is Patient Immunocompromised?: No All Other Systems Reviewed And Are Negative: Yes Physical Exam - Summary Physical Exam Summary: Vital Signs Reviewed: Yes General: well developed, well nourished old female sitting in the examining table w/o any apparent distress Eyes: Positive: Conjunctiva Clear - PERRLA, EOMI, fundi grossly normal ENT: Positive: Normal ENT inspection, Hearing grossly normal, Pharynx normal, Nasal congestion - edematous and erythematous nasal mucosa, Nasal drainage - yellowish drainage, TMs normal. Negative: Tonsillar swelling, Tonsillar exudate Neck: Positive: Supple, Nontender, No Lymphadenopathy Respiratory: no orthopnea or dyspnea. Able to speak in full sentences, no retractions or accessory muscle use, no tripod position, stridor, or head bobbing. CTA bilaterally, no wheezes, rhonchi, rales or crackles Cardiovascular: Positive: RRR, No Murmur, Pulses Normal, Brisk Capillary Refill Abdomen Description: Positive: Nontender, No Organomegaly, Soft. Negative: CVA Tenderness (R), CVA Tenderness (L) Bowel Sounds: Positive: Present Musculoskeletal Exam: Normal Musculoskeletal: Positive: Strength Intact, ROM Intact, No Edema Neurological Exam: Normal Psychological Exam: Normal Skin Exam: Normal Triage Information Reviewed: Yes Vital Signs: Initial Vital Signs Temp 98.8 F 02/06/18 12:23 Pulse 81 02/06/18 12:23 Resp 18 02/06/18 12:23 BP 112/65 02/06/18 12:23 Pulse Ox 97 02/06/18 12:23 Diagnostic Evaluation - Laboratory O2 Sat by Pulse Oximetry: 97 Respiratory Course/Dx - Course Course Of Treatment: 82 y/o female presents to the urgent care c/o productive cough w/ chest congestion since Thursday02/02/2018. Symptoms started w/ a common cold w/ clear nasal discharge and sinus congestion and mild subjective low grade fever the first day. She has been taking Benadryl PO to alleviate symptoms. However she has been feeling w/ fatigue, mild lower back pain, decrease appetite and B/L ear pain. Pain is 2/10. Pt states cough is clear at times and other times is yellowish in color. Pt denies fever, SOB, chest pain, VICTOR, abdominal pain, urinary symptoms, N/V/D, or flank pain. She though she was getting better yesterday, but today she woke up w/ a lot of fatigue. Hx obtained. PE: Pt w/ Probably a URI on examination. However she feels fatigue and body aches. Rapid influenza ordered: negative. UA ordered: Positive nitrates, leukoesteraces trace and trace of blood. Pt w/ UTI. Chest X-ray ordered to r/o pneumonia, impression: no active cardiolpulmonary disease observed. all results explained to and Pt. Pt PCN allergic.Pt Rx Bactrim PO and Pyridium PO to alleviate symptoms. Urine culture sent to lab. pt willbe notified of any abnormality. Pt advised to stop taking Bendaryl PO since it can cause her drowsiness and there is a higher risk of falls. Pt advised to rest, increase fluid intake, eat well and avoid strenuous exercise. If symptoms do not improve or worsen advised to return to the urgent care or f/u with her PCP 2-3 days for further evaluation and treatment. Pt understood and agreed with plan of care. Pt left clinic hemodynamically stable, A&OX3. - Differential Dx/Diagnosis Differential Diagnosis/HQI/PQRI: Bronchitis, Influenza, Lower Resp Infection, Sinusitis, Other - UTI, pneumonia Provider Diagnoses: 1-Upper respiratory infection. 2- UTI. 3-Dysuria Discharge - Sign-Out/Discharge Documenting (check all that apply): Patient Departure - D/C home All imaging exams completed and their final reports reviewed: Yes - Discharge Plan Condition: Stable Disposition: HOME Prescriptions: Phenazopyridine TAB* [Pyridium 100 mg TAB*] 100 mg PO TID #6 tab Sulfamethox/Trimethoprim DS* [Bactrim DS 800/160 TAB*] 1 tab PO BID #14 tab Patient Education Materials: Urinary Tract Infection in Women (ED), Upper Respiratory Infection (ED) Referrals: Neetu Marie PA [Primary Care Provider] - 2 Days Additional Instructions: 1- Please take Bactrim 100mg PO x 7 days. Pyridium 100 mg PO TID x 2 days to alleviate urinary symptoms. Increase increase fluid intake. drink cranberry juice. 2-Urine sent for culture if any abnormality, you will be notified for further treatment. 3-If symptoms do not improve please return to the urgent care or f/u with your PCP in 2-3 days for further evaluation and treatment. 4- Stop taking Benadryl PO since it can make you drowsy and you will be at a higher risk to fall 5- Use saline drops to clear sinuses and take Tylenol PO q6-8hrs to alleviate symptoms of URI - Billing Disposition and Condition Condition: STABLE Disposition: Home
--- NOTE | 2018-02-06 13:38 | RAD ---
Indication: Cough. 2 views of the chest are reviewed. Dual-energy PA views are reviewed. Comparison is made with previous exam dated July 28, 2017. Pacemaker leads are in place. No mediastinal shift is noted. The heart is slightly prominent in size. There is calcification of the mitral valve annulus. Lung ortega are clear. IMPRESSION: No active cardiopulmonary disease is identified.
== END 2018-02-06 14:03 | disposition home or self-care (01) ==
LOC: UCCORT 10:56
DX: J06.9 Acute upper respiratory infection, unspecified (principal); N39.0 Urinary tract infection, site not specified; Z88.0 Allergy status to penicillin
CPT/HCPCS: 71046; 81003; 87077; 87086; 87186; 99212; G0463